=== PATIENT | female | born 1955 | race American Indian/Alaskan Native ===

== ENCOUNTER 2018-06-21 05:21 | Inpatient (IN) | payer MEDICAID, OTHER ==
--- NOTE | 2018-06-21 05:31 | EDM.PDOC ---
ED HPI GENERAL MEDICAL PROBLEM - General Stated Complaint: AMBULANCE-UNKNOWN Time Seen by Provider: 06/21/18 05:31 Source of Information: Reports: Patient, EMS, EMS Notes Reviewed, RN, RN Notes Reviewed History Limitations: Reports: Intoxication - History of Present Illness INITIAL COMMENTS - FREE TEXT/NARRATIVE: Pt to ER per [facility] with c/o difficulty breathing. Patient states she woke up with the shortness of breath. Patient states she was drinking alcohol last night. States hx of diabetes, asthma. States she does not smoke cigarettes but smoke marijuana on a daily basis. Denies fever, N/V/D, chest pain. Admits to chills and non-productive cough. Onset: Today, Sudden - Related Data Allergies Allergy/AdvReac Type Severity Reaction Status Date / Time No Known Allergies Allergy Verified 06/21/18 05:37 ED ROS GENERAL - Review of Systems Review Of Systems: ROS reveals no pertinent complaints other than HPI. ED EXAM, GENERAL - Physical Exam Exam: See Below Exam Limited By: Intoxication General Appearance: Lethargic, Mild Distress Eye Exam: Bilateral Eye: Normal Inspection Ears: Normal External Exam, Hearing Grossly Normal Nose: Normal Inspection Throat/Mouth: Normal Inspection, Normal Lips, Normal Teeth, Normal Gums, Normal Oropharynx, Normal Voice, No Airway Compromise Head: Atraumatic, Normocephalic Neck: Normal Inspection, Supple, Non-Tender, Full Range of Motion Respiratory/Chest: Decreased Breath Sounds, Crackles ( bases bilaterally) Cardiovascular: Normal Peripheral Pulses, Regular Rate, Rhythm, No Edema, No Gallop, No JVD, No Murmur, No Rub Peripheral Pulses: 2+: Radial (L), Radial (R) GI/Abdominal: Normal Bowel Sounds, Soft, Non-Tender (Female) Exam: Deferred Rectal (Female) Exam: Deferred Back Exam: Normal Inspection, Full Range of Motion, NT Extremities: Normal Inspection, Normal Range of Motion, Non-Tender, Normal Capillary Refill, No Pedal Edema Neurological: Inattentive, Slow to Respond Psychiatric: Depressed Mood, Flat Affect, Tearful Skin Exam: Warm, Dry, Intact, Normal Color, No Rash Lymphatic: No Adenopathy Course - Vital Signs Last Recorded V/S: Last Vital Signs Temp 99.2 F 06/21/18 05:22 Pulse 126 H 06/21/18 05:22 Resp 26 H 06/21/18 05:22 BP 145/65 H 06/21/18 05:22 Pulse Ox 98 06/21/18 05:22 - Orders/Labs/Meds Orders: Active Orders 24 hr Category Date Time Status EKG Documentation Completion [RC] STAT Care 06/21/18 05:31 Active Peripheral IV Care [RC] . DIRECTED Care 06/21/18 06:21 Active CULTURE BLOOD [BC] Stat Lab 06/21/18 06:21 Ordered CULTURE BLOOD [BC] Stat Lab 06/21/18 06:21 Ordered Piperacillin/Tazobactam [Zosyn] 3.375 gm Med 06/21/18 06:17 Active Sodium Chloride 0.9% [Normal Saline] 100 ml IV ONETIME Potassium Chloride [KCl 10 MEQ in Water 100 ML] 10 meq Med 06/21/18 06:21 Active Premix Bag 1 bag IV ONETIME Sodium Chloride 0.9% [Normal Saline] 1,000 ml Med 06/21/18 06:11 Active IV .BOLUS Sodium Chloride 0.9% [Saline Flush] Med 06/21/18 06:20 Active 10 ml FLUSH ASDIRECTED PRN Blood Culture x2 Reflex Set [OM.PC] Stat Oth 06/21/18 06:20 Ordered Peripheral IV Insertion Adult [OM.PC] Stat Oth 06/21/18 06:20 Ordered Medication Orders Sodium Chloride (Normal Saline) 1,000 mls @ 999 mls/hr IV .BOLUS ONE Stop: 06/21/18 07:11 Last Admin: 06/21/18 06:14 Dose: 999 mls/hr Piperacillin Sod/Tazobactam (Sod 3.375 gm/ Sodium Chloride) 100 mls @ 200 mls/ hr IV ONETIME ONE Stop: 06/21/18 06:46 Potassium Chloride 10 meq/ (Premix) 100 mls @ 100 mls/hr IV ONETIME ONE Stop: 06/21/18 07:20 Sodium Chloride (Saline Flush) 10 ml FLUSH ASDIRECTED PRN PRN Reason: Keep Vein Open Labs: Laboratory Tests 06/21/18 06/21/18 06/21/18 Range/Units 05:28 05:41 05:41 WBC 17.8 H (5.0-10.0) 10^3/uL RBC 4.41 (4.2-5.4) 10^6/uL Hgb 12.4 (12.0-16.0) g/dL Hct 38.3 (37.0-47.0) % MCV 86.8 (80-100) fL MCH 28.1 (27.0-34.0) pg MCHC 32.4 L (33.0-35.0) g/dL Plt Count 301 (150-450) 10^3/uL Neut % (Auto) 62.2 (42.2-75.2) % Lymph % (Auto) 33.9 (20.5-50.1) % [place] % (Auto) 3.6 (2-8) % Eos % (Auto) 0.2 L (1.0-3.0) % Baso % (Auto) 0.1 (0.0-1.0) % Sodium 138 (135-145) mmol/L Potassium 3.0 L (3.6-5.0) mmol/L Chloride 103 (101-111) mmol/L Carbon Dioxide 15.0 L (21.0-31.0) mmol/L Anion Gap 23.0 BUN 7 (7-18) mg/dL Creatinine 0.7 (0.6-1.3) mg/dL Est Cr Clr Drug Dosing 64.21 mL/min Estimated GFR (MDRD) > 60 BUN/Creatinine Ratio 10.00 Glucose 200 H (74-105) mg/dL POC Glucose 175 H (70-105) mg/dl Lactic Acid (0.5-2.2) mmol/L Calcium 8.5 (8.4-10.2) mg/dl Magnesium 1.6 L (1.8-2.5) mg/dL Total Bilirubin 0.4 (0.2-1.0) mg/dL AST 31 (10-42) IU/L ALT 20 (10-60) IU/L Alkaline Phosphatase 71 (42-121) IU/L Troponin I < 0.02 (0.00-0.02) ng/ml Total Protein 8.0 (6.7-8.2) g/dl Albumin 4.2 (3.2-5.5) g/dl Globulin 3.8 Albumin/Globulin Ratio 1.11 Urine Color (YELLOW) Urine Appearance (CLEAR) Urine pH (5.0-9.0) Ur Specific [place] (1.005-1.030) Urine Protein (NEGATIVE) Urine Glucose (UA) (NEGATIVE) Urine Ketones (NEGATIVE) Urine Occult Blood (NEGATIVE) Urine Nitrite (NEGATIVE) Urine Bilirubin (NEGATIVE) Urine Urobilinogen (0.2-1.0) mg/dL Ur Leukocyte Esterase (NEGATIVE) Urine Opiates Screen (NEGATIVE) Ur Oxycodone Screen (NEGATIVE) Urine Methadone Screen (NEGATIVE) Ur Barbiturates Screen (NEGATIVE) U Tricyclic Antidepress (NEGATIVE) Ur Phencyclidine Scrn (NEGATIVE) Ur Amphetamine Screen (NEGATIVE) U Methamphetamines Scrn (NEGATIVE) Urine MDMA Screen (NEGATIVE) U Benzodiazepines Scrn (NEGATIVE) Urine Cocaine Screen (NEGATIVE) U Marijuana (THC) Screen (NEGATIVE) Ethyl Alcohol 234 mg/dL 06/21/18 06/21/18 06/21/18 Range/Units 05:41 05:55 05:55 WBC (5.0-10.0) 10^3/uL RBC (4.2-5.4) 10^6/uL Hgb (12.0-16.0) g/dL Hct (37.0-47.0) % MCV (80-100) fL MCH (27.0-34.0) pg MCHC (33.0-35.0) g/dL Plt Count (150-450) 10^3/uL Neut % (Auto) (42.2-75.2) % Lymph % (Auto) (20.5-50.1) % [place] % (Auto) (2-8) % Eos % (Auto) (1.0-3.0) % Baso % (Auto) (0.0-1.0) % Sodium (135-145) mmol/L Potassium (3.6-5.0) mmol/L Chloride (101-111) mmol/L Carbon Dioxide (21.0-31.0) mmol/L Anion Gap BUN (7-18) mg/dL Creatinine (0.6-1.3) mg/dL Est Cr Clr Drug Dosing mL/min Estimated GFR (MDRD) BUN/Creatinine Ratio Glucose (74-105) mg/dL POC Glucose (70-105) mg/dl Lactic Acid 5.7 H (0.5-2.2) mmol/L Calcium (8.4-10.2) mg/dl Magnesium (1.8-2.5) mg/dL Total Bilirubin (0.2-1.0) mg/dL AST (10-42) IU/L ALT (10-60) IU/L Alkaline Phosphatase (42-121) IU/L Troponin I (0.00-0.02) ng/ml Total Protein (6.7-8.2) g/dl Albumin (3.2-5.5) g/dl Globulin Albumin/Globulin Ratio Urine Color Yellow (YELLOW) Urine Appearance Clear (CLEAR) Urine pH 5.0 (5.0-9.0) Ur Specific [place] <= 1.005 (1.005-1.030) Urine Protein Negative (NEGATIVE) Urine Glucose (UA) Negative (NEGATIVE) Urine Ketones Negative (NEGATIVE) Urine Occult Blood Negative (NEGATIVE) Urine Nitrite Negative (NEGATIVE) Urine Bilirubin Negative (NEGATIVE) Urine Urobilinogen 0.2 (0.2-1.0) mg/dL Ur Leukocyte Esterase Negative (NEGATIVE) Urine Opiates Screen Negative (NEGATIVE) Ur Oxycodone Screen Negative (NEGATIVE) Urine Methadone Screen Negative (NEGATIVE) Ur Barbiturates Screen Negative (NEGATIVE) U Tricyclic Antidepress Negative (NEGATIVE) Ur Phencyclidine Scrn Negative (NEGATIVE) Ur Amphetamine Screen Negative (NEGATIVE) U Methamphetamines Scrn Negative (NEGATIVE) Urine MDMA Screen Negative (NEGATIVE) U Benzodiazepines Scrn Negative (NEGATIVE) Urine Cocaine Screen Negative (NEGATIVE) U Marijuana (THC) Screen Positive H (NEGATIVE) Ethyl Alcohol mg/dL Meds: Medications Generic Name Dose Route Start Last Admin Trade Name Freq PRN Reason Stop Dose Admin Sodium Chloride 1,000 mls @ 999 mls/hr 06/21/18 06:11 06/21/18 06:14 Normal Saline IV 06/21/18 07:11 999 mls/hr .BOLUS ONE Administration Piperacillin Sod/Tazobactam 100 mls @ 200 mls/hr 06/21/18 06:17 Sod 3.375 gm/ Sodium Chloride IV 06/21/18 06:46 ONETIME ONE Potassium Chloride 10 meq/ 100 mls @ 100 mls/hr 06/21/18 06:21 Premix IV 06/21/18 07:20 ONETIME ONE Sodium Chloride 10 ml 06/21/18 06:20 Saline Flush FLUSH ASDIRECTED PRN Keep Vein Open - Radiology Interpretation Free Text/Narrative:: Chest xray: FINDINGS: Lungs: There is some haziness seen in the left lower hemithorax possibly representing atelectasis. An infiltrate cannot be entirely excluded. Pleural space: Unremarkable. No pleural effusion. No pneumothorax. Heart/Mediastinum: Unremarkable. No cardiomegaly. Bones/joints: Unremarkable. IMPRESSION: Haziness present in the left lower hemithorax may represent atelectasis although infiltrate cannot be excluded. Thank you for allowing us to participate in the care of your patient. Dictated and Authenticated by: Gino Ortiz MD See rad report - Re-Assessments/Exams Free Text/Narrative Re-Assessment/Exam: 06/21/18 06:36 Discussed patient case with Dr. Schultz who agreed to accept the patient inpatient. Departure - Departure Time of Disposition: 06:33 Disposition: Admitted As Inpatient 65 Condition: Fair Clinical Impression: Intoxication, Hypokalemia, Hypomagnesemia Pneumonia Qualifiers: Pneumonia type: due to unspecified organism Laterality: left Lung location: lower lobe of lung Qualified Code(s): J18.1 - Lobar pneumonia, unspecified organism Asthma Qualifiers: Asthma severity: unspecified severity Asthma persistence: intermittent Asthma complication type: with acute exacerbation Qualified Code(s): J45.21 - Mild intermittent asthma with (acute) exacerbation Diabetes Qualifiers: Diabetes mellitus type: type 2 Diabetes mellitus vermin exterminator insulin use: without fdc use Diabetes mellitus complication status: without complication Qualified Code(s): E11.9 - Type 2 diabetes mellitus without complications - Discharge Information *PRESCRIPTION DRUG MONITORING PROGRAM REVIEWED*: No *COPY OF PRESCRIPTION DRUG MONITORING REPORT IN PATIENT ASHER: No Forms: ED Department Discharge - My Orders Last 24 Hours: My Active Orders 06/21/18 05:31 EKG Documentation Completion [RC] STAT 06/21/18 06:11 Sodium Chloride 0.9% [Normal Saline] 1,000 ml IV .BOLUS 06/21/18 06:17 Piperacillin/Tazobactam [Zosyn] 3.375 gm Sodium Chloride 0.9% [Normal Saline] 100 ml IV ONETIME 06/21/18 06:20 Sodium Chloride 0.9% [Saline Flush] 10 ml FLUSH ASDIRECTED PRN Blood Culture x2 Reflex Set [OM.PC] Stat Peripheral IV Insertion Adult [OM.PC] Stat 06/21/18 06:21 Peripheral IV Care [RC] . DIRECTED CULTURE BLOOD [BC] Stat CULTURE BLOOD [BC] Stat Potassium Chloride [KCl 10 MEQ in Water 100 ML] 10 meq Premix Bag 1 bag IV ONETIME - Assessment/Plan Last 24 Hours: My Active Orders 06/21/18 05:31 EKG Documentation Completion [RC] STAT 06/21/18 06:11 Sodium Chloride 0.9% [Normal Saline] 1,000 ml IV .BOLUS 06/21/18 06:17 Piperacillin/Tazobactam [Zosyn] 3.375 gm Sodium Chloride 0.9% [Normal Saline] 100 ml IV ONETIME 06/21/18 06:20 Sodium Chloride 0.9% [Saline Flush] 10 ml FLUSH ASDIRECTED PRN Blood Culture x2 Reflex Set [OM.PC] Stat Peripheral IV Insertion Adult [OM.PC] Stat 06/21/18 06:21 Peripheral IV Care [RC] . DIRECTED CULTURE BLOOD [BC] Stat CULTURE BLOOD [BC] Stat Potassium Chloride [KCl 10 MEQ in Water 100 ML] 10 meq Premix Bag 1 bag IV ONETIME
[2018-06-21] MEDS ORDERED: Sodium Chloride 0.9% 1,000 ML IV ONE ×2 (06:11→10:30)
[2018-06-21 06:12] LABS: CHLORIDE,CL 103 mmol/L (101-111); SODIUM,NA 138 mmol/L (135-145)
[2018-06-21] MEDS ORDERED: Piperacillin/Tazobactam 3.375 GM in Sodium Chloride 0.9% 100 ML IV ONE (06:17)
[2018-06-21] MEDS ORDERED: Potassium Chloride 10 MEQ in Premix Bag 1 BAG IV ONE (06:21)
[2018-06-21] MEDS ORDERED: Magnesium Sulfate/Water 2 GM in Premix Bag 1 BAG IV ONE (06:36)
[2018-06-21] MEDS: Sodium Chloride 0.9% 10 ML Syringe FLUSH PRN (07:04)
[2018-06-21] MEDS ORDERED: Bisacodyl 5 MG Tab PO PRN (08:46)
[2018-06-21] MEDS ORDERED: Acetaminophen 325 MG Tab PO PRN (08:46)
[2018-06-21] MEDS ORDERED: Albuterol/Ipratropium 3.0-0.5 MG/3 ML Neb Soln NEB PRN (08:46)
[2018-06-21] MEDS ORDERED: Magnesium Hydroxide 400 MG/5 ML Susp 30 ML Cup PO PRN ×2 (08:46→13:45)
[2018-06-21] MEDS ORDERED: Ondansetron 4 MG/2 ML SDV IVPUSH PRN ×2 (08:46→13:45)
[2018-06-21] MEDS ORDERED: Lidocaine 5% 700 MG Patch TOP PRN (08:53)
[2018-06-21] MEDS ORDERED: Sodium Chloride 0.9% 1,000 ML IV SCH (09:00)
--- NOTE | 2018-06-21 09:01 | PCM.HP ---
H&P History of Present Illness - General Date of Service: 06/21/18 Admit Problem/Dx: Admission Diagnosis/Problem Admission Diagnosis/Problem Sepsis Source of Information: Patient History Limitations: Reports: No Limitations - History of Present Illness Initial Comments - Free Text/Narative: Michael is a 53 year old female with past medical history significant for diabetes , asthma and marijuana use. Patient was brought to the ER via EMS with shortness of breath. Patient said she woke up with shortness of breath this morning. This was associated with wheezing. She thinks this is flare of her asthma. She used her rescue medications with no relief. EMS was activated. Upon arrival she received Solu-Medrol, 2 rounds of nebulization. The patient denies cough, chest pain, palpitation. She has no fever or chills. Patient was drinking alcohol last night. But she denies daily use of alcohol. She says she does not drink. She denied vomiting or loss of consciousness. She denies abdominal pain, nausea, vomiting, diarrhea, constipation. In the ER her vitals were essentially unremarkable accept for mild tachycardia. Significant labs include WBC 17.8, lactic acid 5.7, anion gap 23, CO2 15, potassium replacement 0 , magnesium 1.6, blood alcohol level 234. Chest x-ray showed haziness present in the left lower hemithorax concerning for atelectasis versus infiltrate. She was given Zosyn and IVF in the ER. She has been admitted for further management. Onset of Symptoms: Reports: Sudden Duration of Symptoms: Reports: Hour(s): Location: Reports: Chest Quality: Reports: Ache Improves with: Reports: None Worsens with: Reports: None Associated Symptoms: Reports: No Other Symptoms, Shortness of Breath - Related Data Allergies/Adverse Reactions: Allergies Allergy/AdvReac Type Severity Reaction Status Date / Time codeine AdvReac Vomiting Verified 06/21/18 07:32 Home Medications: Home Meds Acetaminophen 1,000 mg PO Q6H PRN 06/21/18 [History] Albuterol Sulfate [Proair Hfa] 1 puff INH Q6H PRN 06/21/18 [History] Aspirin [Halfprin] 81 mg PO DAILY 06/21/18 [History] Calcium Citrate/Vitamin D3 [Calcium Citrate - Vit D Tablet] 1 tab PO DAILY 06/21 [History] Capsaicin [Zostrix 0.025% Crm] 1 applic TOP BID 06/21/18 [History] Celecoxib 200 mg PO DAILY 06/21/18 [History] Cholecalciferol (Vitamin D3) [Vitamin D3] 1,000 units PO DAILY 06/21/18 [History ] Diclofenac Sodium [Voltaren 1%] 1 applic TP QID 06/21/18 [History] Fluticasone Propionate [Flovent] 1 spray INH DAILY 06/21/18 [History] Gabapentin [Neurontin] 200 mg PO BID 06/21/18 [History] Insulin Detemir [Levemir] 15 units SUBCUT BID 06/21/18 [History] Lidocaine 5% [Lidoderm 5%] 2 patch TOP Q12HR PRN 06/21/18 [History] Lisinopril 2.5 mg PO DAILY 06/21/18 [History] Loratadine 10 mg PO DAILY 06/21/18 [History] Multivitamin with Minerals [Multivitamins with Minerals] 1 tab PO DAILY [History] Saxagliptin HCl [Onglyza] 5 mg PO DAILY 06/21/18 [History] Simvastatin 20 mg PO BEDTIME 06/21/18 [History] Vitamin B Comp W-C/FA/Zinc [Juana B Strong with C & Zinc Tb] 1 tab PO DAILY 06/21 [History] metFORMIN HCl [Metformin HCl] 1,000 mg PO BID 06/21/18 [History] Past Medical History HEENT History: Reports: Impaired Vision Cardiovascular History: Reports: Hypertension Respiratory History: Reports: Asthma, Pneumonia, Recurrent Musculoskeletal History: Reports: Arthritis Psychiatric History: Reports: Addiction Endocrine/Metabolic History: Reports: Diabetes, Type II - Infectious Disease History Infectious Disease History: Reports: Chicken Pox - Past Surgical History GI Surgical History: Reports: Appendectomy, Cholecystectomy Social & Family History - Family History Family Medical History: Noncontributory - Tobacco Use Smoking Status *Q: Former Smoker Used Tobacco, but Quit: Yes Month/Year Tobacco Last Used: when she was 27 Second Hand Smoke Exposure: No - Caffeine Use Caffeine Use: Reports: Coffee Other Caffeine Use: Coffee daily - Alcohol Use Days Per Week of Alcohol Use: 2 Number of Drinks Per Day: 10 Total Drinks Per Week: 20 Date of Last Drink: 06/20/18 - Recreational Drug Use Recreational Drug Use: Yes Drug Use in Last 12 Months: Yes Recreational Drug Type: Reports: Marijuana/Hashish Recreational Drug Use Frequency: Daily H&P Review of Systems - Review of Systems: Review Of Systems: See Below General: Reports: Weakness HEENT: Reports: No Symptoms Pulmonary: Reports: Shortness of Breath, Wheezing Cardiovascular: Reports: No Symptoms Gastrointestinal: Reports: No Symptoms Genitourinary: Reports: No Symptoms Musculoskeletal: Reports: No Symptoms Skin: Reports: No Symptoms Psychiatric: Reports: No Symptoms Neurological: Reports: No Symptoms Hematologic/Lymphatic: Reports: No Symptoms Immunologic: Reports: No Symptoms Exam - Exam Exam: See Below - Vital Signs Vital Signs: Last Vital Signs Temp 98.2 F 06/21/18 07:32 Pulse 108 H 06/21/18 07:32 Resp 20 06/21/18 07:32 BP 116/66 06/21/18 07:32 Pulse Ox 98 06/21/18 07:32 Weight: 173 lb 3.2 oz - Exam Quality Assessment: DVT Prophylaxis General: Alert, Oriented, 4 HEENT: PERRLA, Hearing Intact, Mucosa Moist & [place], Nares Patent, Normal Nasal Septum, Posterior Pharynx Clear, Conjunctiva Clear, EOMI, EACs Clear, TMs Clear Neck: Supple, Trachea Midline, 2 Lungs: Clear to Auscultation, Normal Respiratory Effort Cardiovascular: Regular Rate, Regular Rhythm GI/Abdominal Exam: Normal Bowel Sounds, Soft, Non-Tender, No Organomegaly, No Distention, No Abnormal Bruit, No Mass, Pelvis Stable (Female) Exam: Normal External Exam, Normal Speculum Exam, Normal Bimanual Exam Rectal (Female) Exam: Normal Rectal Tone, Deferred Back Exam: Normal Inspection, Full Range of Motion, NT Extremities: Normal Inspection, Normal Range of Motion, Non-Tender, No Pedal Edema, Normal Capillary Refill Skin: Warm, Dry, Intact Neurological: Cranial Nerves Intact, Reflexes Equal Bilateral Neuro Extensive - Mental Status: Alert, Oriented x3, Normal Mood/Affect, Normal Cognition Neuro Extensive - Motor, Sensory, Reflexes: CN II-XII Intact, Normal Gait, Normal Reflexes - Patient Data Lab Results Last 24 hrs: Laboratory Results - last 24 hr 06/21/18 06/21/18 06/21/18 Range/Units 05:28 05:41 05:41 WBC 17.8 H (5.0-10.0) 10^3/uL RBC 4.41 (4.2-5.4) 10^6/uL Hgb 12.4 (12.0-16.0) g/dL Hct 38.3 (37.0-47.0) % MCV 86.8 (80-100) fL MCH 28.1 (27.0-34.0) pg MCHC 32.4 L (33.0-35.0) g/dL Plt Count 301 (150-450) 10^3/uL Neut % (Auto) 62.2 (42.2-75.2) % Lymph % (Auto) 33.9 (20.5-50.1) % [place] % (Auto) 3.6 (2-8) % Eos % (Auto) 0.2 L (1.0-3.0) % Baso % (Auto) 0.1 (0.0-1.0) % Sodium 138 (135-145) mmol/L Potassium 3.0 L (3.6-5.0) mmol/L Chloride 103 (101-111) mmol/L Carbon Dioxide 15.0 L (21.0-31.0) mmol/L Anion Gap 23.0 BUN 7 (7-18) mg/dL Creatinine 0.7 (0.6-1.3) mg/dL Est Cr Clr Drug Dosing 64.21 mL/min Estimated GFR (MDRD) > 60 BUN/Creatinine Ratio 10.00 Glucose 200 H (74-105) mg/dL POC Glucose 175 H (70-105) mg/dl Lactic Acid (0.5-2.2) mmol/L Calcium 8.5 (8.4-10.2) mg/dl Magnesium 1.6 L (1.8-2.5) mg/dL Total Bilirubin 0.4 (0.2-1.0) mg/dL AST 31 (10-42) IU/L ALT 20 (10-60) IU/L Alkaline Phosphatase 71 (42-121) IU/L Troponin I < 0.02 (0.00-0.02) ng/ml Total Protein 8.0 (6.7-8.2) g/dl Albumin 4.2 (3.2-5.5) g/dl Globulin 3.8 Albumin/Globulin Ratio 1.11 Urine Color (YELLOW) Urine Appearance (CLEAR) Urine pH (5.0-9.0) Ur Specific [place] (1.005-1.030) Urine Protein (NEGATIVE) Urine Glucose (UA) (NEGATIVE) Urine Ketones (NEGATIVE) Urine Occult Blood (NEGATIVE) Urine Nitrite (NEGATIVE) Urine Bilirubin (NEGATIVE) Urine Urobilinogen (0.2-1.0) mg/dL Ur Leukocyte Esterase (NEGATIVE) Urine Opiates Screen (NEGATIVE) Ur Oxycodone Screen (NEGATIVE) Urine Methadone Screen (NEGATIVE) Ur Barbiturates Screen (NEGATIVE) U Tricyclic Antidepress (NEGATIVE) Ur Phencyclidine Scrn (NEGATIVE) Ur Amphetamine Screen (NEGATIVE) U Methamphetamines Scrn (NEGATIVE) Urine MDMA Screen (NEGATIVE) U Benzodiazepines Scrn (NEGATIVE) Urine Cocaine Screen (NEGATIVE) U Marijuana (THC) Screen (NEGATIVE) Ethyl Alcohol 234 mg/dL 06/21/18 06/21/18 06/21/18 Range/Units 05:41 05:55 05:55 WBC (5.0-10.0) 10^3/uL RBC (4.2-5.4) 10^6/uL Hgb (12.0-16.0) g/dL Hct (37.0-47.0) % MCV (80-100) fL MCH (27.0-34.0) pg MCHC (33.0-35.0) g/dL Plt Count (150-450) 10^3/uL Neut % (Auto) (42.2-75.2) % Lymph % (Auto) (20.5-50.1) % [place] % (Auto) (2-8) % Eos % (Auto) (1.0-3.0) % Baso % (Auto) (0.0-1.0) % Sodium (135-145) mmol/L Potassium (3.6-5.0) mmol/L Chloride (101-111) mmol/L Carbon Dioxide (21.0-31.0) mmol/L Anion Gap BUN (7-18) mg/dL Creatinine (0.6-1.3) mg/dL Est Cr Clr Drug Dosing mL/min Estimated GFR (MDRD) BUN/Creatinine Ratio Glucose (74-105) mg/dL POC Glucose (70-105) mg/dl Lactic Acid 5.7 H (0.5-2.2) mmol/L Calcium (8.4-10.2) mg/dl Magnesium (1.8-2.5) mg/dL Total Bilirubin (0.2-1.0) mg/dL AST (10-42) IU/L ALT (10-60) IU/L Alkaline Phosphatase (42-121) IU/L Troponin I (0.00-0.02) ng/ml Total Protein (6.7-8.2) g/dl Albumin (3.2-5.5) g/dl Globulin Albumin/Globulin Ratio Urine Color Yellow (YELLOW) Urine Appearance Clear (CLEAR) Urine pH 5.0 (5.0-9.0) Ur Specific [place] <= 1.005 (1.005-1.030) Urine Protein Negative (NEGATIVE) Urine Glucose (UA) Negative (NEGATIVE) Urine Ketones Negative (NEGATIVE) Urine Occult Blood Negative (NEGATIVE) Urine Nitrite Negative (NEGATIVE) Urine Bilirubin Negative (NEGATIVE) Urine Urobilinogen 0.2 (0.2-1.0) mg/dL Ur Leukocyte Esterase Negative (NEGATIVE) Urine Opiates Screen Negative (NEGATIVE) Ur Oxycodone Screen Negative (NEGATIVE) Urine Methadone Screen Negative (NEGATIVE) Ur Barbiturates Screen Negative (NEGATIVE) U Tricyclic Antidepress Negative (NEGATIVE) Ur Phencyclidine Scrn Negative (NEGATIVE) Ur Amphetamine Screen Negative (NEGATIVE) U Methamphetamines Scrn Negative (NEGATIVE) Urine MDMA Screen Negative (NEGATIVE) U Benzodiazepines Scrn Negative (NEGATIVE) Urine Cocaine Screen Negative (NEGATIVE) U Marijuana (THC) Screen Positive H (NEGATIVE) Ethyl Alcohol mg/dL 06/21/18 Range/Units 07:47 WBC (5.0-10.0) 10^3/uL RBC (4.2-5.4) 10^6/uL Hgb (12.0-16.0) g/dL Hct (37.0-47.0) % MCV (80-100) fL MCH (27.0-34.0) pg MCHC (33.0-35.0) g/dL Plt Count (150-450) 10^3/uL Neut % (Auto) (42.2-75.2) % Lymph % (Auto) (20.5-50.1) % [place] % (Auto) (2-8) % Eos % (Auto) (1.0-3.0) % Baso % (Auto) (0.0-1.0) % Sodium (135-145) mmol/L Potassium (3.6-5.0) mmol/L Chloride (101-111) mmol/L Carbon Dioxide (21.0-31.0) mmol/L Anion Gap BUN (7-18) mg/dL Creatinine (0.6-1.3) mg/dL Est Cr Clr Drug Dosing mL/min Estimated GFR (MDRD) BUN/Creatinine Ratio Glucose (74-105) mg/dL POC Glucose 196 H (70-105) mg/dl Lactic Acid (0.5-2.2) mmol/L Calcium (8.4-10.2) mg/dl Magnesium (1.8-2.5) mg/dL Total Bilirubin (0.2-1.0) mg/dL AST (10-42) IU/L ALT (10-60) IU/L Alkaline Phosphatase (42-121) IU/L Troponin I (0.00-0.02) ng/ml Total Protein (6.7-8.2) g/dl Albumin (3.2-5.5) g/dl Globulin Albumin/Globulin Ratio Urine Color (YELLOW) Urine Appearance (CLEAR) Urine pH (5.0-9.0) Ur Specific [place] (1.005-1.030) Urine Protein (NEGATIVE) Urine Glucose (UA) (NEGATIVE) Urine Ketones (NEGATIVE) Urine Occult Blood (NEGATIVE) Urine Nitrite (NEGATIVE) Urine Bilirubin (NEGATIVE) Urine Urobilinogen (0.2-1.0) mg/dL Ur Leukocyte Esterase (NEGATIVE) Urine Opiates Screen (NEGATIVE) Ur Oxycodone Screen (NEGATIVE) Urine Methadone Screen (NEGATIVE) Ur Barbiturates Screen (NEGATIVE) U Tricyclic Antidepress (NEGATIVE) Ur Phencyclidine Scrn (NEGATIVE) Ur Amphetamine Screen (NEGATIVE) U Methamphetamines Scrn (NEGATIVE) Urine MDMA Screen (NEGATIVE) U Benzodiazepines Scrn (NEGATIVE) Urine Cocaine Screen (NEGATIVE) U Marijuana (THC) Screen (NEGATIVE) Ethyl Alcohol mg/dL Result Diagrams: 06/21/18 09:23 06/21/18 05:41 - Problem List (1) Sepsis SNOMED Code(s): 14337106 ICD Code: A41.9 - SEPSIS, UNSPECIFIED ORGANISM Status: Acute Current Visit: Yes (2) Metabolic acidosis with increased anion gap and accumulation of organic acids SNOMED Code(s): 27159947 ICD Code: E87.2 - ACIDOSIS Status: Acute Current Visit: Yes (3) Asthma SNOMED Code(s): 404419491 ICD Code: J45.909 - UNSPECIFIED ASTHMA, UNCOMPLICATED Status: Acute Current Visit: No Qualifiers: Asthma severity: unspecified severity Asthma persistence: intermittent Asthma complication type: with acute exacerbation Qualified Code(s): J45.21 - Mild intermittent asthma with (acute) exacerbation (4) Diabetes SNOMED Code(s): 63360269 ICD Code: E11.9 - TYPE 2 DIABETES MELLITUS WITHOUT COMPLICATIONS Status: Acute Current Visit: No Qualifiers: Diabetes mellitus type: type 2 Diabetes mellitus senior living insulin use: without senior living use Diabetes mellitus complication status: without complication Qualified Code(s): E11.9 - Type 2 diabetes mellitus without complications (5) Hypokalemia SNOMED Code(s): 14578983 ICD Code: E87.6 - HYPOKALEMIA Status: Acute Current Visit: No (6) Hypomagnesemia SNOMED Code(s): 159093301 ICD Code: E83.42 - HYPOMAGNESEMIA Status: Acute Current Visit: No (7) Intoxication SNOMED Code(s): 94480894 ICD Code: TZH4130 - Status: Acute Current Visit: No (8) Pneumonia SNOMED Code(s): 422166562 ICD Code: J18.9 - PNEUMONIA, UNSPECIFIED ORGANISM Status: Acute Current Visit: No Qualifiers: Pneumonia type: due to unspecified organism Laterality: left Lung location: lower lobe of lung Qualified Code(s): J18.1 - Lobar pneumonia, unspecified organism Problem List Initiated/Reviewed/Updated: Yes Orders Last 24hrs: Active Orders 24 hr Category Date Time Status Patient Status [ADT] Routine ADT 06/21/18 08:46 Ordered Ambulate [RC] ASDIRECTED Care 06/21/18 08:46 Ordered Blood Glucose Check, Bedside [RC] QIDACANDBED Care 06/21/18 08:46 Ordered Cardiac Monitoring [RC] CONTINUOUS Care 06/21/18 08:48 Ordered Intake and Output [RC] QSHIFT Care 06/21/18 08:47 Ordered Notify Provider Vital Signs [RC] ASDIRECTED Care 06/21/18 08:48 Ordered Oxygen Therapy [RC] PRN Care 06/21/18 08:46 Ordered Peripheral IV Care [RC] 09,21 Care 06/21/18 06:21 Active Pulse Oximetry [RC] PRN Care 06/21/18 08:47 Ordered RT Aerosol Therapy [RC] ASDIRECTED Care 06/21/18 08:53 Ordered VTE/DVT Education [RC] PER UNIT ROUTINE Care 06/21/18 08:46 Ordered Vital Signs [RC] Q4H Care 06/21/18 08:46 Ordered Respiratory Care Assess and Treatment [CONS] Routine Cons 06/21/18 08:46 Ordered CBC WITH AUTO DIFF [HEME] Routine Lab 06/21/18 08:46 Ordered CULTURE BLOOD [BC] Stat Lab 06/21/18 06:37 Received CULTURE BLOOD [BC] Stat Lab 06/21/18 06:41 Received LACTIC ACID [CHEM] Q4H Lab 06/21/18 09:00 Ordered LACTIC ACID [CHEM] Q4H Lab 06/21/18 13:00 Ordered LACTIC ACID [CHEM] Q4H Lab 06/21/18 17:00 Ordered LACTIC ACID [CHEM] Q4H Lab 06/21/18 21:00 Ordered MAGNESIUM [CHEM] Routine Lab 06/21/18 08:46 Ordered PHOSPHORUS [CHEM] Routine Lab 06/21/18 08:46 Ordered Acetaminophen [Tylenol] Med 06/21/18 08:46 Ordered 650 mg PO Q6H PRN Albuterol/Ipratropium [DuoNeb 3.0-0.5 MG/3 ML] Med 06/21/18 08:46 Ordered 3 ml NEB Q4H PRN Aspirin [Halfprin] Med 06/21/18 09:00 Ordered 81 mg PO DAILY Bisacodyl [Dulcolax] Med 06/21/18 08:46 Ordered 5 mg PO DAILY PRN Calcium Citrate/Vitamin D3 [Calcium Citrate - Vit D Med 06/21/18 09:00 Ordered Tablet] 1 tab PO DAILY Capsaicin [Zostrix 0.025% Crm] Med 06/21/18 09:00 Ordered 1 applic TOP BID Celecoxib [Celecoxib] Med 06/21/18 09:00 Ordered 200 mg PO DAILY Cholecalciferol (Vitamin D3) [Vitamin D3] Med 06/21/18 09:00 Ordered 1,000 units PO DAILY Diclofenac Sodium [Voltaren 1% Gel] Med 06/21/18 09:00 Ordered 1 applic TP QID Fluticasone Propionate [Flovent] Med 06/21/18 09:00 Ordered 1 spray INH DAILY Gabapentin [Neurontin] Med 06/21/18 09:00 Ordered 200 mg PO BID Heparin Sodium Med 06/21/18 09:00 Ordered 5,000 units SUBCUT Q12H Insulin Detemir [Levemir] Med 06/21/18 09:00 Ordered 15 units SUBCUT BID Lidocaine 5% [Lidoderm 5%] Med 06/21/18 08:53 Ordered 2 patch TOP Q12HR PRN Lisinopril [Prinivil] Med 06/21/18 09:00 Ordered 2.5 mg PO DAILY Magnesium Hydroxide [Milk of Magnesia] Med 06/21/18 08:46 Ordered 30 ml PO Q12H PRN Multivitamin with Minerals [Multivitamins with Minerals Med 06/21/18 09:00 Ordered ] 1 tab PO DAILY Ondansetron [Zofran] Med 06/21/18 08:46 Ordered 4 mg IVPUSH Q8H PRN Saxagliptin HCl [Onglyza] Med 06/21/18 09:00 Ordered 5 mg PO DAILY Simvastatin [Simvastatin] Med 06/21/18 21:00 Ordered 20 mg PO BEDTIME Sodium Chloride 0.9% [Normal Saline] 1,000 ml Med 06/21/18 09:00 Ordered IV .BOLUS Sodium Chloride 0.9% [Saline Flush] Med 06/21/18 06:20 Active 10 ml FLUSH ASDIRECTED PRN Vitamin B Comp W-C/FA/Zinc [Juana B Strong with C & Zinc Med 06/21/18 09:00 Ordered Tb] 1 tab PO DAILY Blood Culture x2 Reflex Set [OM.PC] Stat Oth 06/21/18 06:20 Ordered Peripheral IV Insertion Adult [OM.PC] Stat Oth 06/21/18 06:20 Ordered Resuscitation Status Routine Resus Stat 06/21/18 08:46 Ordered Medication Orders Acetaminophen (Tylenol) 650 mg PO Q6H PRN PRN Reason: Pain (Mild 1-3)/fever Albuterol/Ipratropium (Duoneb 3.0-0.5 Mg/3 Ml) 3 ml NEB Q4H PRN PRN Reason: shortness of breath/wheezing Aspirin (Halfprin) 81 mg PO DAILY [facility] Bisacodyl (Dulcolax) 5 mg PO DAILY PRN PRN Reason: Constipation Capsaicin (Zostrix 0.025% Crm) gm TOP BID [facility] Cholecalciferol (Vitamin D3) 1,000 units PO DAILY [facility] Gabapentin (Neurontin) 200 mg PO BID [facility] Heparin Sodium (Porcine) (Heparin Sodium) 5,000 units SUBCUT Q12H [facility] Sodium Chloride (Normal Saline) 1,000 mls @ 999 mls/hr IV .BOLUS [facility] Lidocaine (Lidoderm 5%) mg TOP Q12HR PRN PRN Reason: Pain Lisinopril (Prinivil) 2.5 mg PO DAILY [facility] Magnesium Hydroxide (Milk Of Magnesia) 30 ml PO Q12H PRN PRN Reason: Constipation Non-Formulary Medication (Calcium Citrate/Vitamin D3 [Calcium Citrate - Vit D Tablet]) 1 tab PO DAILY [facility] Non-Formulary Medication (Celecoxib [Celecoxib]) 200 mg PO DAILY [facility] Non-Formulary Medication (Diclofenac Sodium [Voltaren 1% Gel]) 1 applic TP QID [facility] Non-Formulary Medication (Fluticasone Propionate [Flovent]) 1 spray INH DAILY [facility] Non-Formulary Medication (Insulin Detemir [Levemir]) 15 units SUBCUT BID [facility] Non-Formulary Medication (Multivitamin With Minerals [Multivitamins With Minerals]) 1 tab PO DAILY [facility] Non-Formulary Medication (Saxagliptin Hcl [Onglyza]) 5 mg PO DAILY [facility] Non-Formulary Medication (Simvastatin [Simvastatin]) 20 mg PO BEDTIME [facility] Non-Formulary Medication (Vitamin B Comp W-C/Fa/Zinc [Juana B Strong With C & Zinc Tb]) 1 tab PO DAILY [facility] Ondansetron HCl (Zofran) 4 mg IVPUSH Q8H PRN PRN Reason: Nausea/Vomiting Sodium Chloride (Saline Flush) 10 ml FLUSH ASDIRECTED PRN PRN Reason: Keep Vein Open Last Admin: 06/21/18 07:04 Dose: 10 ml Assessment/Plan Comment:: Assessment. Rodriguez is a 53 year old female with past medical history significant for diabetes , asthma and marijuana use. Patient was brought to the ER via EMS with shortness of breath. Patient said she woke up with shortness of breath this morning. This was associated with wheezing. She thinks this is flare of her asthma. In the ER her vitals were essentially unremarkable accept for mild tachycardia. Significant labs include WBC 17.8, lactic acid 5.7, anion gap 23, CO2 15, potassium replacement 0, magnesium 1.6, blood alcohol level 234. Chest x-ray was concerning for atelectasis versus infiltrate. Plan Acute respiratory failure due to asthma exacerbation Abdomen patient to Gen. medical floors Monitor vitals Monitor on telemetry Supplemental oxygen as needed Duo-nebs every 4 hourly Solu-Medrol 40 mg 3 times a day Respiratory to assess and treat as needed High anion gap metabolic acidosis due to sepsis versus lactic acidosis from nebulizer use Repeat labs including lactate IV fluid Possible sepsis due to possible pneumonia - POA Patient's was febrile, tachycardia, chest x-ray showed left lower hemithorax concerning for infiltrate vs atelectasis with elevated lactic acid This could be due to possible pneumonia most likely aspiration pneumonia Blood cultures, sputum for Gram stain and culture, urine culture Continue IV Zosyn Lactate every 4 hourly 4 Aggressive IV hydration Possible Pneumonia CXR showed left lower hemithorax concerning for infiltrate vs atelectasis Continue IV Zosyn as above Follow cultures Hypomagnesemia IV replacement Hypokalemia Replace IV Alcohol intoxication Patient denies drinking alcohol daily EtoH was 234 on admit Continue IV fluids Monitor electrolytes and correct as needed Monitor for alcohol withdrawal symptoms Aspiration/fall/seizure precautions Marijuana abuse Patient advised to quit using recreational substances Type 2 diabetes Supple optimally controlled Continue home medication as sent for metformin POC glucose 4 times daily Sliding-scale insulin for optimal glycemic control Hypoglycemia protocol Diabetic neuropathy Continue gabapentin Diet Consistent carbohydrate diet Full code
[2018-06-21] MEDS: Sodium Chloride 0.9% 1,000 ML IV SCH ×2 (09:17→20:10)
[2018-06-21 10:04] LABS: ANION GAP 21.6; CHLORIDE,CL 108 mmol/L (101-111); SODIUM,NA 139 mmol/L (135-145)
[2018-06-21] MEDS: Gabapentin 100 MG Cap PO SCH ×2 (10:58→21:11)
[2018-06-21] MEDS: Heparin Sodium 5,000 Units/ML Vial SUBCUT SCH ×2 (10:59→21:13)
[2018-06-21] MEDS: Multivitamins, Therapeutic with Minerals Tab PO SCH (10:59)
[2018-06-21] MEDS: Celecoxib 100 MG Cap PO SCH (10:59)
[2018-06-21] MEDS: Vitamin B Complex Cap PO SCH (10:59)
[2018-06-21] MEDS: Insulin Glarg,Human.Rec.Analog 100 UNIT/ML ML SUBCUT SCH ×2 (10:59→21:14)
[2018-06-21] MEDS: Cholecalciferol (Vitamin D3) 1,000 Unit Tab PO SCH (10:59)
[2018-06-21] MEDS: Calcium Carbonate/Vitamin D3 1250 MG-200 Unit Tab PO SCH (10:59)
[2018-06-21] MEDS: Aspirin 81 MG Tab.EC PO SCH (10:59)
[2018-06-21] MEDS: Capsaicin 0.025% Crm 60 GM Tube TOP SCH ×2 (11:01→21:16)
[2018-06-21] MEDS: Lisinopril 5 MG Tab PO SCH (11:05)
[2018-06-21] MEDS: Piperacillin/Tazobactam 3.375 GM in Sodium Chloride 0.9% 100 ML IV SCH ×2 (11:45→17:56)
[2018-06-21 14:09] LABS: ANION GAP 18.1; CHLORIDE,CL 110 mmol/L (101-111); SODIUM,NA 138 mmol/L (135-145)
[2018-06-21] MEDS: Insulin Isophane NPH, Human 100 Units/ML 10 ML Vial SUBCUT SCH ×2 (18:10→21:13)
[2018-06-21] MEDS: Simvastatin 10 MG Tab PO SCH (21:11)
[2018-06-21] MEDS: Fluticasone Propionate Nasal Spray 16 GM Bottle NASBOTH SCH (21:15)
[2018-06-22] MEDS: Piperacillin/Tazobactam 3.375 GM in Sodium Chloride 0.9% 100 ML IV SCH ×5 (00:45→23:39)
[2018-06-22 07:07] LABS: ANION GAP 9.7; CHLORIDE,CL 114 mmol/L (101-111); SODIUM,NA 139 mmol/L (135-145)
[2018-06-22] MEDS: Sodium Chloride 0.9% 1,000 ML IV SCH ×2 (07:17→17:48)
[2018-06-22] MEDS: Insulin Isophane NPH, Human 100 Units/ML 10 ML Vial SUBCUT SCH (08:16)
[2018-06-22] MEDS: Gabapentin 100 MG Cap PO SCH ×2 (09:05→20:53)
[2018-06-22] MEDS: Vitamin B Complex Cap PO SCH (09:05)
[2018-06-22] MEDS: Celecoxib 100 MG Cap PO SCH (09:05)
[2018-06-22] MEDS: Aspirin 81 MG Tab.EC PO SCH (09:06)
[2018-06-22] MEDS: Lisinopril 5 MG Tab PO SCH (09:06)
[2018-06-22] MEDS: Multivitamins, Therapeutic with Minerals Tab PO SCH (09:06)
[2018-06-22] MEDS: Calcium Carbonate/Vitamin D3 1250 MG-200 Unit Tab PO SCH (09:06)
[2018-06-22] MEDS: Insulin Glarg,Human.Rec.Analog 100 UNIT/ML ML SUBCUT SCH ×2 (09:07→21:12)
[2018-06-22] MEDS: Cholecalciferol (Vitamin D3) 1,000 Unit Tab PO SCH (09:07)
[2018-06-22] MEDS: Heparin Sodium 5,000 Units/ML Vial SUBCUT SCH ×2 (09:10→20:56)
[2018-06-22] MEDS: Sodium Chloride 0.9% 10 ML Syringe FLUSH PRN (09:11)
[2018-06-22] MEDS: Capsaicin 0.025% Crm 60 GM Tube TOP SCH ×2 (09:14→21:02)
[2018-06-22] MEDS: Albuterol/Ipratropium 3.0-0.5 MG/3 ML Neb Soln NEB PRN ×2 (10:32→16:12)
--- NOTE | 2018-06-22 11:01 | PCM.PN ---
- General Info Date of Service: 06/22/18 Subjective Update: Patient has no new complaint today Still feeling weak. Denies significant cough. Denies abdominal pain. - Review of Systems General: Reports: No Symptoms, Weakness Pulmonary: Reports: Shortness of Breath Cardiovascular: Reports: No Symptoms Gastrointestinal: Reports: No Symptoms Musculoskeletal: Reports: No Symptoms - Patient Data Vitals - Most Recent: Last Vital Signs Temp 36.3 C 06/22/18 07:55 Pulse 69 06/22/18 10:33 Resp 20 06/22/18 07:55 BP 134/56 L 06/22/18 09:06 Pulse Ox 98 06/22/18 10:33 Weight - Most Recent: 78.562 kg I&O - Last 24 Hours: Intake & Output 06/21/18 06/22/18 06/22/18 22:59 06:59 14:59 Intake Total 1769 1400 Output Total 600 300 Balance 1169 1100 Lab Results Last 24 Hours: Laboratory Results - last 24 hr 06/21/18 06/21/18 06/21/18 Range/Units 11:05 13:02 13:07 WBC (5.0-10.0) 10^3/uL RBC (4.2-5.4) 10^6/uL Hgb (12.0-16.0) g/dL Hct (37.0-47.0) % MCV (80-100) fL MCH (27.0-34.0) pg MCHC (33.0-35.0) g/dL Plt Count (150-450) 10^3/uL Sodium 138 (135-145) mmol/L Potassium 4.1 (3.6-5.0) mmol/L Chloride 110 (101-111) mmol/L Carbon Dioxide 14.0 L (21.0-31.0) mmol/L Anion Gap 18.1 BUN 7 (7-18) mg/dL Creatinine 0.7 (0.6-1.3) mg/dL Est Cr Clr Drug Dosing 64.21 mL/min Estimated GFR (MDRD) > 60 Glucose 294 H (74-105) mg/dL POC Glucose 221 H (70-105) mg/dl Lactic Acid 4.0 H (0.5-2.2) mmol/L Calcium 7.8 L (8.4-10.2) mg/dl 06/21/18 06/21/18 06/21/18 Range/Units 16:47 17:15 20:56 WBC (5.0-10.0) 10^3/uL RBC (4.2-5.4) 10^6/uL Hgb (12.0-16.0) g/dL Hct (37.0-47.0) % MCV (80-100) fL MCH (27.0-34.0) pg MCHC (33.0-35.0) g/dL Plt Count (150-450) 10^3/uL Sodium (135-145) mmol/L Potassium (3.6-5.0) mmol/L Chloride (101-111) mmol/L Carbon Dioxide (21.0-31.0) mmol/L Anion Gap BUN (7-18) mg/dL Creatinine (0.6-1.3) mg/dL Est Cr Clr Drug Dosing mL/min Estimated GFR (MDRD) Glucose (74-105) mg/dL POC Glucose 280 H 182 H (70-105) mg/dl Lactic Acid 1.5 (0.5-2.2) mmol/L Calcium (8.4-10.2) mg/dl 06/22/18 06/22/18 06/22/18 Range/Units 06:22 06:22 07:39 WBC 12.2 H (5.0-10.0) 10^3/uL RBC 3.23 L (4.2-5.4) 10^6/uL Hgb 9.2 L D (12.0-16.0) g/dL Hct 28.7 L (37.0-47.0) % MCV 88.9 (80-100) fL MCH 28.5 (27.0-34.0) pg MCHC 32.1 L (33.0-35.0) g/dL Plt Count 210 (150-450) 10^3/uL Sodium 139 (135-145) mmol/L Potassium 3.7 (3.6-5.0) mmol/L Chloride 114 H (101-111) mmol/L Carbon Dioxide 19.0 L (21.0-31.0) mmol/L Anion Gap 9.7 BUN 12 (7-18) mg/dL Creatinine 0.7 (0.6-1.3) mg/dL Est Cr Clr Drug Dosing 64.21 mL/min Estimated GFR (MDRD) > 60 Glucose 97 (74-105) mg/dL POC Glucose 105 (70-105) mg/dl Lactic Acid (0.5-2.2) mmol/L Calcium 7.8 L (8.4-10.2) mg/dl Bull Results Last 24 Hours: Microbiology 06/21/18 06:41 Aerobic Blood Culture - Preliminary Blood - Venous - Lab Draw NO GROWTH AFTER 1 DAY Anaerobic Blood Culture - Preliminary NO GROWTH AFTER 1 DAY 06/21/18 06:37 Aerobic Blood Culture - Preliminary Blood - Venous NO GROWTH AFTER 1 DAY Anaerobic Blood Culture - Preliminary NO GROWTH AFTER 1 DAY Med Orders - Current: Current Medications Acetaminophen (Tylenol) 650 mg PO Q6H PRN PRN Reason: Pain (Mild 1-3)/fever Albuterol/Ipratropium (Duoneb 3.0-0.5 Mg/3 Ml) 3 ml NEB Q4HRRT PRN PRN Reason: shortness of breath/wheezing Last Admin: 06/22/18 10:32 Dose: 3 ml Aspirin (Halfprin) 81 mg PO DAILY [facility] Last Admin: 06/22/18 09:06 Dose: 81 mg Bisacodyl (Dulcolax) 5 mg PO DAILY PRN PRN Reason: Constipation Calcium Carbonate (Calcium Carbonate/Vitamin D 1250 Mg-200 Unit) 1 tab PO DAILY [facility] Last Admin: 06/22/18 09:06 Dose: 1 tab Capsaicin (Zostrix 0.025% Crm) 0 gm TOP BID [facility] Last Admin: 06/22/18 09:14 Dose: Not Given Celecoxib (Celebrex) 200 mg PO DAILY [facility] Last Admin: 06/22/18 09:05 Dose: 200 mg Cholecalciferol (Vitamin D3) 1,000 units PO DAILY [facility] Last Admin: 06/22/18 09:07 Dose: 1,000 units Fluticasone Propionate (Flonase) 0 gm NASBOTH BEDTIME [facility] Last Admin: 06/21/18 21:15 Dose: 2 spray Gabapentin (Neurontin) 200 mg PO BID [facility] Last Admin: 06/22/18 09:05 Dose: 200 mg Heparin Sodium (Porcine) (Heparin Sodium) 5,000 units SUBCUT Q12HR [facility] Last Admin: 06/22/18 09:10 Dose: 5,000 units Sodium Chloride (Normal Saline) 1,000 mls @ 100 mls/hr IV ASDIRECTED [facility] Last Admin: 06/22/18 07:17 Dose: 100 mls/hr Piperacillin Sod/Tazobactam (Sod 3.375 gm/ Sodium Chloride) 100 mls @ 200 mls/ hr IV Q6H [facility] Last Infusion: 06/22/18 06:30 Dose: Infused Insulin Glargine (Lantus) 15 unit SUBCUT BID [facility] Last Admin: 06/22/18 09:07 Dose: 15 units Insulin Human Lispro (Humalog) 0 unit SUBCUT ACBED [facility]; Protocol Lidocaine (Lidoderm 5%) 1,400 mg TOP Q12HR PRN PRN Reason: Pain Lisinopril (Prinivil) 2.5 mg PO DAILY [facility] Last Admin: 06/22/18 09:06 Dose: 2.5 mg Magnesium Hydroxide (Milk Of Magnesia) 30 ml PO Q12HR PRN PRN Reason: Constipation Multivitamins/Minerals (Vitamins And Minerals) 1 tab PO DAILY [facility] Last Admin: 06/22/18 09:06 Dose: 1 tab Non-Formulary Medication (Diclofenac Sodium [Voltaren 1% Gel]) 1 applic TP QID [facility] Non-Formulary Medication (Saxagliptin Hcl [Onglyza]) 5 mg PO DAILY [facility] Ondansetron HCl (Zofran) 4 mg IVPUSH Q8HR PRN PRN Reason: Nausea/Vomiting Simvastatin (Zocor) 20 mg PO BEDTIME [facility] Last Admin: 06/21/18 21:11 Dose: 20 mg Sodium Chloride (Saline Flush) 10 ml FLUSH ASDIRECTED PRN PRN Reason: Keep Vein Open Last Admin: 06/22/18 09:11 Dose: 10 ml Vitamin B Complex (Vitamin B Complex) 1 each PO DAILY [facility] Last Admin: 06/22/18 09:05 Dose: 1 each Discontinued Medications Albuterol/Ipratropium (Duoneb 3.0-0.5 Mg/3 Ml) 3 ml NEB Q4H PRN PRN Reason: shortness of breath/wheezing Sodium Chloride (Normal Saline) 1,000 mls @ 999 mls/hr IV .BOLUS ONE Stop: 06/21/18 07:11 Last Admin: 06/21/18 06:14 Dose: 999 mls/hr Piperacillin Sod/Tazobactam (Sod 3.375 gm/ Sodium Chloride) 100 mls @ 200 mls/ hr IV ONETIME ONE Stop: 06/21/18 06:46 Last Admin: 06/21/18 06:50 Dose: 200 mls/hr Potassium Chloride 10 meq/ (Premix) 100 mls @ 100 mls/hr IV ONETIME ONE Stop: 06/21/18 07:20 Last Admin: 06/21/18 06:49 Dose: 100 mls/hr Magnesium Sulfate 2 gm/ Premix 50 mls @ 25 mls/hr IV ONETIME ONE Stop: 06/21/18 08:35 Last Admin: 06/21/18 06:49 Dose: 25 mls/hr Sodium Chloride (Normal Saline) 1,000 mls @ 999 mls/hr IV .BOLUS DOLORES Sodium Chloride (Normal Saline) 1,000 mls @ 999 mls/hr IV .BOLUS ONE Stop: 06/21/18 11:30 Last Admin: 06/21/18 09:17 Dose: 999 mls/hr Insulin Human NPH (Novolin N) 0 unit SUBCUT 07,11,17,21 DOLORES; Protocol Last Admin: 06/22/18 08:16 Dose: Not Given Magnesium Hydroxide (Milk Of Magnesia) 30 ml PO Q12H PRN PRN Reason: Constipation Ondansetron HCl (Zofran) 4 mg IVPUSH Q8H PRN PRN Reason: Nausea/Vomiting - Exam Quality Assessment: Supplemental Oxygen General: Alert, Oriented Lungs: Normal Respiratory Effort, Decreased Breath Sounds GI/Abdominal Exam: Normal Bowel Sounds, Soft, Non-Tender, No Organomegaly, No Distention, No Abnormal Bruit, No Mass, Pelvis Stable - Problem List Review Problem List Initiated/Reviewed/Updated: Yes - My Orders Last 24 Hours: My Active Orders 06/23/18 09:44 CBC W/O DIFF,HEMOGRAM [HEME] Routine - Plan Plan:: AssessmentSimon Rodriguez is a 53 year old female with past medical history significant for diabetes , asthma and marijuana use. Patient was brought to the ER via EMS with shortness of breath. Patient said she woke up with shortness of breath this morning. This was associated with wheezing. She thinks this is flare of her asthma. In the ER her vitals were essentially unremarkable accept for mild tachycardia. Significant labs include WBC 17.8, lactic acid 5.7, anion gap 23, CO2 15, potassium replacement 0, magnesium 1.6, blood alcohol level 234. Chest x-ray was concerning for atelectasis versus infiltrate. Plan Acute respiratory failure due to asthma exacerbation Abdomen patient to Gen. medical floors Monitor vitals Monitor on telemetry Supplemental oxygen as needed Duo-nebs every 4 hourly Solu-Medrol 40 mg 3 times a day Respiratory to assess and treat as needed High anion gap metabolic acidosis due to sepsis versus lactic acidosis from nebulizer use Repeat labs including lactate IV fluid Possible sepsis due to possible pneumonia - POA Patient's was febrile, tachycardia, chest x-ray showed left lower hemithorax concerning for infiltrate vs atelectasis with elevated lactic acid This could be due to possible pneumonia most likely aspiration pneumonia Blood cultures, sputum for Gram stain and culture, urine culture Continue intravenous Zosyn started at admission Possible Pneumonia CXR showed left lower hemithorax concerning for infiltrate vs atelectasis Continue IV Zosyn as above Follow cultures Hypomagnesemia IV replacement Hypokalemia Replace IV Alcohol intoxication Patient denies drinking alcohol daily EtoH was 234 on admit Intravenous fluids Marijuana abuse Patient advised to quit using recreational substances Type 2 diabetes Supple optimally controlled POC glucose 4 times daily Sliding-scale insulin for optimal glycemic control Hypoglycemia protocol Diabetic neuropathy Continue gabapentin Diet Consistent carbohydrate diet Full code
[2018-06-22] MEDS: SAXAGLIPTIN HCL 5 MG PO SCH ×2 (11:23→11:54)
[2018-06-22] MEDS: Insulin Lispro 100 Units/ML 3 ML Vial SUBCUT SCH ×3 (11:33→21:10)
[2018-06-22] MEDS: Non-Formulary Medication 1 Each (Diclofenac Sodium [Voltaren 1% Gel] 1 APPLIC) TP SCH (11:37)
[2018-06-22] MEDS: methylPREDNISolone Sodium Succinate 40 MG/1 ML SDV IVPUSH SCH ×2 (14:07→20:58)
[2018-06-22] MEDS: Simvastatin 10 MG Tab PO SCH (20:53)
[2018-06-22] MEDS: Fluticasone Propionate Nasal Spray 16 GM Bottle NASBOTH SCH (20:56)
[2018-06-23] MEDS: Sodium Chloride 0.9% 1,000 ML IV SCH (03:51)
[2018-06-23] MEDS: Piperacillin/Tazobactam 3.375 GM in Sodium Chloride 0.9% 100 ML IV SCH ×2 (05:33→12:00)
[2018-06-23] MEDS: Insulin Lispro 100 Units/ML 3 ML Vial SUBCUT SCH ×4 (07:58→21:27)
[2018-06-23] MEDS: Celecoxib 100 MG Cap PO SCH (08:41)
[2018-06-23] MEDS: Calcium Carbonate/Vitamin D3 1250 MG-200 Unit Tab PO SCH (08:42)
[2018-06-23] MEDS: Multivitamins, Therapeutic with Minerals Tab PO SCH (08:43)
[2018-06-23] MEDS: Vitamin B Complex Cap PO SCH (08:43)
[2018-06-23] MEDS: Gabapentin 100 MG Cap PO SCH ×2 (08:44→21:28)
[2018-06-23] MEDS: Aspirin 81 MG Tab.EC PO SCH (08:44)
[2018-06-23] MEDS: Cholecalciferol (Vitamin D3) 1,000 Unit Tab PO SCH (08:45)
[2018-06-23] MEDS: Lisinopril 5 MG Tab PO SCH (08:46)
[2018-06-23] MEDS: SAXAGLIPTIN HCL 5 MG PO SCH (08:47)
[2018-06-23] MEDS: Capsaicin 0.025% Crm 60 GM Tube TOP SCH ×2 (08:48→21:33)
[2018-06-23] MEDS: Heparin Sodium 5,000 Units/ML Vial SUBCUT SCH ×2 (08:49→21:31)
[2018-06-23] MEDS: Insulin Glarg,Human.Rec.Analog 100 UNIT/ML ML SUBCUT SCH ×2 (09:37→21:26)
--- NOTE | 2018-06-23 11:09 | PN ---
DATE: 06/23/2018 SUBJECTIVE: Ms. Michael Tim is a 63-year-old female with medical history significant for hypertension, diabetes mellitus, history of asthma, history of marijuana use, admitted with increasing shortness of breath and noted to have acute respiratory failure due to asthma exacerbation with underlying pneumonia and sepsis. For the last 24 hours, the patient was continued on IV fluids, IV antibiotics. She denies any ongoing chest pains. No shortness of breath. No abdominal pain. No nausea. No vomiting. No diarrhea. REVIEW OF SYSTEMS: Cardiovascular, respiratory, gastrointestinal, neurology, constitutional were all evaluated. OBJECTIVE: Vitals Signs: Temperature of 97.9, pulse of 52, blood pressure 157/74, respiratory rate 16, and saturating at 95% on room air. General Appearance: Patient is well oriented to time, place, and person. Follows commands spontaneously. Cardiovascular System: S1, S2 heard with normal intensity. No gallops. Respiratory System: Clear to auscultation bilaterally. No wheeze. No crepitations. Abdomen: Soft. Bowel sounds positive. Nontender. No rigidity. Extremities: No edema bilateral lower extremities. Neurologic: No gross focal neurological deficit. MEDICATIONS: Reviewed. Continue with Tylenol 650 every 4 hours as needed for pain and fever, DuoNeb every 4 hours, aspirin 81 mg daily, Celebrex 200 mg daily, vitamin D3 1000 units daily, Flonase at bedtime, Neurontin 200 mg twice a day, Lantus 15 units twice a day, Humalog at bedtime, lisinopril 5 mg daily, methylprednisone 40 mg IV 3 times a day, Zofran as needed for nausea and vomiting, Zosyn IV q.6 hourly, and Zocor 20 mg at bedtime. LABORATORY DATA: Labs reviewed. WBC 9.2, hemoglobin 10.1, hematocrit 31.3, platelet count 222. ASSESSMENT: 1. Acute asthma exacerbation. 2. Pneumonia. 3. Sepsis. 4. Metabolic acidosis, resolved. 5. Hypertension. 6. Type 2 diabetes mellitus. 7. Hyperlipidemia. 8. Hypomagnesemia, resolved. 9. Hypokalemia. 10.Alcohol use. PLAN: 1. Pneumonia. The patient is currently on Zosyn, we will continue the same. So for cultures remained negative. We will follow the sputum cultures and titrate the antibiotics. 2. Acute asthma exacerbation. The patient has been on nebulizer treatment and IV methylprednisolone. We will switch her to oral prednisone today. No wheeze noted on the lung exam. 3. High anion gap metabolic acidosis. We will recheck a basic metabolic panel. She was treated with IV fluids. We will discontinue the IV fluids. 4. Possible sepsis, seems to be resolved. The patient remains afebrile. No leukocytosis today. Continue with current antibiotic regimen. 5. Electrolyte imbalance. The patient was noted to have hypokalemia and hypomagnesium at the time of admission. We will recheck a basic metabolic panel in a.m. 6. Type 2 diabetes mellitus, uncontrolled. The patient noted to have elevated blood sugar. This could be steroid-induced. Continue supplemental scale insulin. Continue with insulin regimen as scheduled. Once we decrease her steroid dose, hopefully the sugars will get better. 7. DVT prophylaxis. We will have her on continue with the heparin subcutaneously q.12 hourly for DVT prophylaxis. [facility] /[id number]
[2018-06-23] MEDS: Sodium Chloride 0.9% 10 ML Syringe FLUSH PRN (11:56)
[2018-06-23] MEDS: predniSONE 20 MG Tab PO SCH (12:53)
[2018-06-23] MEDS: Amoxicillin/Clavulanate K 500-125 MG Tab PO SCH ×2 (13:42→21:28)
[2018-06-23] MEDS: Fluticasone Propionate Nasal Spray 16 GM Bottle NASBOTH SCH (21:28)
[2018-06-23] MEDS: Simvastatin 10 MG Tab PO SCH (21:29)
[2018-06-24] MEDS: Amoxicillin/Clavulanate K 500-125 MG Tab PO SCH (05:44)
[2018-06-24 06:28] LABS: ANION GAP 12.2; CHLORIDE,CL 109 mmol/L (101-111); SODIUM,NA 141 mmol/L (135-145)
[2018-06-24] MEDS: Insulin Lispro 100 Units/ML 3 ML Vial SUBCUT SCH ×2 (07:43→12:21)
[2018-06-24] MEDS: Lisinopril 5 MG Tab PO SCH (09:19)
[2018-06-24] MEDS: Gabapentin 100 MG Cap PO SCH (09:20)
[2018-06-24] MEDS: Vitamin B Complex Cap PO SCH (09:20)
[2018-06-24] MEDS: Cholecalciferol (Vitamin D3) 1,000 Unit Tab PO SCH (09:21)
[2018-06-24] MEDS: Celecoxib 100 MG Cap PO SCH (09:21)
[2018-06-24] MEDS: Multivitamins, Therapeutic with Minerals Tab PO SCH (09:21)
[2018-06-24] MEDS: Calcium Carbonate/Vitamin D3 1250 MG-200 Unit Tab PO SCH (09:22)
[2018-06-24] MEDS: Aspirin 81 MG Tab.EC PO SCH (09:23)
[2018-06-24] MEDS: predniSONE 20 MG Tab PO SCH (09:23)
[2018-06-24] MEDS: Heparin Sodium 5,000 Units/ML Vial SUBCUT SCH (09:24)
[2018-06-24] MEDS: Insulin Glarg,Human.Rec.Analog 100 UNIT/ML ML SUBCUT SCH (09:28)
[2018-06-24] MEDS: SAXAGLIPTIN HCL 5 MG PO SCH (09:31)
[2018-06-24] MEDS: Capsaicin 0.025% Crm 60 GM Tube TOP SCH (09:31)
[2018-06-24] MEDS ORDERED: Potassium Chloride 10 MEQ Tab.ER PO SCH (12:00)
--- NOTE | 2018-06-24 19:21 | DISCH ---
ADMITTING DIAGNOSES: 1. Acute respiratory failure. 2. Acute asthma exacerbation. 3. Possible sepsis. 4. Pneumonia. 5. Hypomagnesemia. 6. Hypokalemia. 7. Alcohol intoxication. 8. Type 2 diabetes mellitus. DISCHARGE DIAGNOSES: 1. Acute hypoxic respiratory failure, resolved. 2. Acute asthma exacerbation, resolved. 3. High anion gap metabolic acidosis due to sepsis, resolved. 4. Sepsis, resolved. 5. Pneumonia, resolved with antibiotics, switched to oral antibiotic. 6. Hypokalemia and hypomagnesemia, resolved. HISTORY OF PRESENT ILLNESS: Ms. Iman Rodriguez is a 63-year-old female with medical history significant for hypertension, hyperlipidemia, type 2 diabetes mellitus, history of asthma, marijuana use, and alcohol use, admitted to the hospital with increasing shortness of breath and was noted to have pneumonia leading to asthma exacerbation and possible sepsis. The patient was admitted and was started on nebulizer treatment and also Solu-Medrol IV. The patient responded well to the treatment. She was also noted to be in acute hypoxic respiratory failure requiring nasal cannula oxygen at the time of admission, which got resolved at the time of discharge. Chest x-ray showed some haziness in the left lower hemithorax concerning for infiltrates versus atelectasis. The patient had a blood alcohol level of 234 at the time of admission. She is educated about alcohol cessation and strongly encouraged her to quit drinking, which she understands and verbalized the same. She is given oral antibiotic with Augmentin as well as prednisone steroid dosing at a tapered dose. She will continue with her inhalation treatment at home. She is discharged home in stable condition. She is advised to follow with her primary care physician in the next 1 week of time. DISCHARGE MEDICATIONS: Include: 1. Tylenol 1000 mg every 6 hours as needed for pain. 2. Albuterol 1 puff inhalation every 6 hours as needed for shortness of breath. 3. Augmentin 500/125 mg 1 tablet every 8 hours for 5 days. 4. Aspirin 81 mg daily. 5. Calcium carbonate with vitamin D 1 tablet daily. 6. Capsaicin cream topically twice a day. 7. Celecoxib 200 mg oral daily. 8. Vitamin D3 1000 units daily. 9. Diclofenac gel topical 4 times daily. 10.Flonase nasal at bedtime. 11.Neurontin 200 mg twice a day. 12.Levemir 15 units twice daily. 13.Lidoderm transdermal patch every 12 hours as needed. 14.Lisinopril 5 mg daily. 15.Loratadine 10 mg daily. 16.Multivitamin 1 tablet daily. 17.Potassium chloride 20 mEq twice a day for the next 7 days. 18.Saxagliptin 5 mg daily. 19.Simvastatin 20 mg at bedtime. 20.Vitamin B complex 1 tablet daily. 21.Metformin 1000 mg twice a day. 22.Prednisone tapered dose. PHYSICAL EXAMINATION: On the day of discharge: Vital Signs: Temperature of 98, pulse of 46, blood pressure 148/59, respiratory rate of 16, and saturating at 99% on room air. General Appearance: The patient is well oriented to time, place, and person. Follows commands spontaneously. Cardiovascular System: S1 and S2 heard with normal intensity. No gallops. Respiratory System: Clear to auscultation bilaterally. No wheeze. No crepitations. Abdomen: Soft. Bowel sounds positive. Nontender. No rigidity. Extremities: No edema in bilateral lower extremities. Neurology: No gross focal neurological deficits. CONDITION ON ADMISSION: Poor. CONDITION ON DISCHARGE: Stable. DISPOSITION: Discharged to home. ACTIVITY: As tolerated. DIET: Cardiac healthy diet with consistent carbohydrate diet. FOLLOWUP: Follow with primary care physician in the next 1 week of time. Spent over 35 minutes of time in evaluating and treating this patient and discharge planning. [facility] /[id number]
== END 2018-06-24 12:30 | disposition home or self-care (01) | DRG 871 ==
LOC: DL.ED 05:21 → UNDOADMIN 06:39 → DL.MS 06:39
PROVIDERS: ADMIT Student in an Organized Health Care Education/Training Program; ATTEND Student in an Organized Health Care Education/Training Program
DX: A41.9 Sepsis, unspecified organism (principal); J18.1 Lobar pneumonia, unspecified organism; J96.01 Acute respiratory failure with hypoxia; J45.21 Mild intermittent asthma with (acute) exacerbation; E87.2 Acidosis; Y90.7 Blood alcohol level of 200-239 mg/100 ml; H54.7 Unspecified visual loss; E83.42 Hypomagnesemia; I10 Essential (primary) hypertension; M19.91 Primary osteoarthritis, unspecified site; E87.6 Hypokalemia; F12.10 Cannabis abuse, uncomplicated; F10.120 Alcohol abuse with intoxication, uncomplicated; E11.40 Type 2 diabetes mellitus with diabetic neuropathy, unspecified; Z90.49 Acquired absence of other specified parts of digestive tract; Z88.5 Allergy status to narcotic agent; Z79.82 Long term (current) use of aspirin; Z79.4 Long term (current) use of insulin; Z87.891 Personal history of nicotine dependence; Z79.899 Other long term (current) drug therapy
CPT/HCPCS: 36415; 71045; 80048; 80053; 80305-QW; 81003; 82962; 83605; 83735; 84100; 84484; 85025; 85027; 87040; 93005; 94640; 96361; 96365; 96366; 96368; 99284; 99285-25; A9270-GY; G0480; J1644; J1815; J1815-GY; J2543; J2920; J3475; J3480; J7030; J7040; J7050; J7620-GY

== ENCOUNTER 2019-04-17 11:35 | Emergency (ER) | payer OTHER ==
[2019-04-17] MEDS ORDERED: Sodium Chloride 0.9% 10 ML Syringe FLUSH PRN (11:47)
[2019-04-17] MEDS ORDERED: Nitroglycerin 0.4 MG Tab.SL SL PRN (11:47)
--- NOTE | 2019-04-17 11:57 | EDM.PDOC ---
<Francisco Javier Emery - Last Filed: 04/17/19 13:29> ED HPI GENERAL MEDICAL PROBLEM - General Chief Complaint: Cardiovascular Problem Stated Complaint: AMBULANCE Time Seen by Provider: 04/17/19 11:52 Source of Information: Reports: Patient, RN, RN Notes Reviewed History Limitations: Reports: No Limitations - History of Present Illness INITIAL COMMENTS - FREE TEXT/NARRATIVE: Patient arrives to ED via ambulance with complaints of chest pain and shortness of breath x4 days. She has not been around any sick contacts but states she recently got a cold and has been coughing a lot. Her chest pain is reproducible with palpation and her chest wall is tender to palpation. She is having a hard time taking a deep breath and feels generally weak and has a headache that just came on this morning. She does not suffer from heartburn or GERD. She denies any drugs or alcohol use. Duration: Day(s): (4 days), Constant Location: Reports: Chest Quality: Reports: Ache, Sharp Severity: Mild Improves with: Reports: None Worsens with: Reports: None Associated Symptoms: Reports: Chest Pain, Cough, Headaches, Shortness of Breath , Weakness. Denies: Fever/Chills, Loss of Appetite, Nausea/Vomiting, Syncope - Related Data Allergies Allergy/AdvReac Type Severity Reaction Status Date / Time codeine AdvReac Vomiting Verified 06/21/18 07:32 Home Meds: Home Meds Acetaminophen 1,000 mg PO Q6H PRN 06/21/18 [History] Albuterol Sulfate [Proair Hfa] 1 puff INH Q6H PRN 06/21/18 [History] Aspirin [Halfprin] 81 mg PO DAILY 06/21/18 [History] Calcium Citrate/Vitamin D3 [Calcium Citrate - Vit D Tablet] 1 tab PO DAILY 06/21 [History] Capsaicin [Zostrix 0.025% Crm] 1 applic TOP BID 06/21/18 [History] Celecoxib 200 mg PO DAILY 06/21/18 [History] Cholecalciferol (Vitamin D3) [Vitamin D3] 1,000 units PO DAILY 06/21/18 [History ] Diclofenac Sodium [Voltaren 1% Gel] 1 applic TP QID 06/21/18 [History] Fluticasone Propionate [Flonase] 1 spr NS BEDTIME 06/21/18 [History] Gabapentin [Neurontin] 200 mg PO BID 06/21/18 [History] Insulin Detemir [Levemir] 15 units SUBCUT BID 06/21/18 [History] Lidocaine 5% [Lidoderm 5%] 2 patch TOP Q12HR PRN 06/21/18 [History] Loratadine 10 mg PO DAILY 06/21/18 [History] Multivitamin with Minerals [Multivitamins with Minerals] 1 tab PO DAILY [History] Saxagliptin HCl [Onglyza] 5 mg PO DAILY 06/21/18 [History] Simvastatin 20 mg PO BEDTIME 06/21/18 [History] Vitamin B Comp W-C/FA/Zinc [Juana B Strong with C & Zinc Tb] 1 tab PO DAILY 06/21 [History] metFORMIN HCl [Metformin HCl] 1,000 mg PO BID 06/21/18 [History] Amoxicillin/Clavulanate K [Augmentin 500-125 MG] 1 tab PO Q8HR 5 Days #15 tablet 06/24/18 [Rx] Potassium Chloride [Klor-Con 10] 20 meq PO BIDMEALS 7 Days #14 tab.er 06/24/18 [ Rx] lisinopriL [Prinivil] 5 mg PO DAILY 30 Days #30 tablet 06/24/18 [Rx] predniSONE 20 mg PO WITHBREAKFAST 3 Days #3 tablet 06/24/18 [Rx] predniSONE [Prednisone] 5 mg PO DAILY 3 Days #3 tablet 06/24/18 [Rx] predniSONE [Prednisone] 10 mg PO DAILY 3 Days #3 tablet 06/24/18 [Rx] Past Medical History HEENT History: Reports: Impaired Vision Cardiovascular History: Reports: Hypertension Respiratory History: Reports: Asthma, Pneumonia, Recurrent Musculoskeletal History: Reports: Arthritis Psychiatric History: Reports: Addiction Endocrine/Metabolic History: Reports: Diabetes, Type II - Infectious Disease History Infectious Disease History: Reports: Chicken Pox - Past Surgical History GI Surgical History: Reports: Appendectomy, Cholecystectomy Social & Family History - Family History Family Medical History: Noncontributory - Caffeine Use Caffeine Use: Reports: Coffee Other Caffeine Use: Coffee daily ED ROS GENERAL - Review of Systems Review Of Systems: See Below Constitutional: Reports: Weakness. Denies: Fever, Chills, Night Sweats, Decreased Appetite Cardiovascular: Reports: Chest Pain. Denies: Edema, Lightheadedness, Palpitations, Syncope Endocrine: Reports: No Symptoms GI/Abdominal: Reports: Abdominal Pain (epigastric). Denies: Constipation, Diarrhea, Nausea, Vomiting : Reports: No Symptoms Musculoskeletal: Reports: No Symptoms Neurological: Reports: Headache, Weakness. Denies: Confusion, Dizziness, Numbness Psychiatric: Reports: No Symptoms Hematologic/Lymphatic: Reports: No Symptoms Immunologic: Reports: No Symptoms ED EXAM, GENERAL - Physical Exam Exam: See Below Exam Limited By: No Limitations General Appearance: Alert, WD/WN, Mild Distress. No: Anxious Head: Atraumatic, Normocephalic Neck: Normal Inspection, Supple, Non-Tender, Full Range of Motion Respiratory/Chest: No Respiratory Distress, Lungs Clear, Normal Breath Sounds, No Accessory Muscle Use, Chest Non-Tender. No: Rhonchi, Wheezing Cardiovascular: Normal Peripheral Pulses, Regular Rate, Rhythm, No Edema, No Gallop, No JVD, No Murmur, No Rub GI/Abdominal: Normal Bowel Sounds, Soft, No Organomegaly, No Distention, No Abnormal Bruit, No Mass, Tender (epigstric tenderness). No: Distended, Guarding , Rebound (Female) Exam: Deferred Rectal (Female) Exam: Deferred Extremities: Normal Inspection, Normal Range of Motion, Non-Tender, Normal Capillary Refill, No Pedal Edema Psychiatric: Normal Affect, Normal Mood Skin Exam: Warm, Dry, Intact, Normal Color, No Rash Lymphatic: No Adenopathy Course - Vital Signs Last Recorded V/S: Last Vital Signs Temp 98.2 F 04/17/19 11:40 Pulse 100 04/17/19 11:40 Resp 18 04/17/19 11:40 BP 143/88 H 04/17/19 11:55 Pulse Ox 100 04/17/19 11:40 - Orders/Labs/Meds Orders: Active Orders 24 hr Category Date Time Status EKG 12 Lead [EKG Documentation Completion] [RC] STAT Care 04/17/19 11:46 Active Peripheral IV Care [RC] . DIRECTED Care 04/17/19 11:47 Active Chest 1V Frontal [CR] Stat Exams 04/17/19 11:46 Taken Nitroglycerin [Nitrostat] Med 04/17/19 11:47 Active 0.4 mg SL Q5M PRN Sodium Chloride 0.9% [Saline Flush] Med 04/17/19 11:47 Active 10 ml FLUSH ASDIRECTED PRN Peripheral IV Insertion Adult [OM.PC] Stat Oth 04/17/19 11:46 Ordered Medication Orders Nitroglycerin (Nitrostat) 0.4 mg SL Q5M PRN PRN Reason: Chest Pain Last Admin: 04/17/19 11:55 Dose: 0.4 mg Sodium Chloride (Saline Flush) 10 ml FLUSH ASDIRECTED PRN PRN Reason: Keep Vein Open Last Admin: 04/17/19 11:54 Dose: 10 ml Labs: Laboratory Tests 04/17/19 04/17/19 04/17/19 Range/Units 12:00 12:00 12:00 WBC 9.4 (5.0-10.0) 10^3/uL RBC 4.10 L (4.2-5.4) 10^6/uL Hgb 11.1 L (12.0-16.0) g/dL Hct 34.4 L (37.0-47.0) % MCV 83.9 D (80-100) fL MCH 27.1 (27.0-34.0) pg MCHC 32.3 L (33.0-35.0) g/dL Plt Count 236 (150-450) 10^3/uL Neut % (Auto) 70.4 (42.2-75.2) % Lymph % (Auto) 21.6 (20.5-50.1) % Marin % (Auto) 6.3 (2-8) % Eos % (Auto) 1.5 (1.0-3.0) % Baso % (Auto) 0.2 (0.0-1.0) % D-Dimer, Quantitative 312 (0-400) ng/mL Sodium 140 (135-145) mmol/L Potassium 3.8 (3.6-5.0) mmol/L Chloride 106 (101-111) mmol/L Carbon Dioxide 24.0 (21.0-31.0) mmol/L Anion Gap 13.8 BUN 14 (7-18) mg/dL Creatinine 0.6 (0.6-1.3) mg/dL Est Cr Clr Drug Dosing 73.93 mL/min Estimated GFR (MDRD) > 60 BUN/Creatinine Ratio 23.33 Glucose 122 H (74-105) mg/dL Calcium 8.9 (8.4-10.2) mg/dl Total Bilirubin 0.5 (0.2-1.0) mg/dL AST 25 (10-42) IU/L ALT 19 (10-60) IU/L Alkaline Phosphatase 71 (42-121) IU/L Troponin I 0.02 (0.00-0.02) ng/ml B-Natriuretic Peptide 11 (0-100) pg/ml Total Protein 7.4 (6.7-8.2) g/dl Albumin 3.9 (3.2-5.5) g/dl Globulin 3.5 Albumin/Globulin Ratio 1.11 Amylase 52 (28-100) U/L Lipase 32 (22-51) U/L Urine Color (YELLOW) Urine Appearance (CLEAR) Urine pH (5.0-9.0) Ur Specific [place] (1.005-1.030) Urine Protein (NEGATIVE) Urine Glucose (UA) (NEGATIVE) Urine Ketones (NEGATIVE) Urine Occult Blood (NEGATIVE) Urine Nitrite (NEGATIVE) Urine Bilirubin (NEGATIVE) Urine Urobilinogen (0.2-1.0) mg/dL Ur Leukocyte Esterase (NEGATIVE) Urine Opiates Screen (NEGATIVE) Ur Oxycodone Screen (NEGATIVE) Urine Methadone Screen (NEGATIVE) Ur Barbiturates Screen (NEGATIVE) U Tricyclic Antidepress (NEGATIVE) Ur Phencyclidine Scrn (NEGATIVE) Ur Amphetamine Screen (NEGATIVE) U Methamphetamines Scrn (NEGATIVE) Urine MDMA Screen (NEGATIVE) U Benzodiazepines Scrn (NEGATIVE) Urine Cocaine Screen (NEGATIVE) U Marijuana (THC) Screen (NEGATIVE) Ethyl Alcohol < 5 mg/dL 04/17/19 04/17/19 Range/Units 12:54 12:54 WBC (5.0-10.0) 10^3/uL RBC (4.2-5.4) 10^6/uL Hgb (12.0-16.0) g/dL Hct (37.0-47.0) % MCV (80-100) fL MCH (27.0-34.0) pg MCHC (33.0-35.0) g/dL Plt Count (150-450) 10^3/uL Neut % (Auto) (42.2-75.2) % Lymph % (Auto) (20.5-50.1) % Marin % (Auto) (2-8) % Eos % (Auto) (1.0-3.0) % Baso % (Auto) (0.0-1.0) % D-Dimer, Quantitative (0-400) ng/mL Sodium (135-145) mmol/L Potassium (3.6-5.0) mmol/L Chloride (101-111) mmol/L Carbon Dioxide (21.0-31.0) mmol/L Anion Gap BUN (7-18) mg/dL Creatinine (0.6-1.3) mg/dL Est Cr Clr Drug Dosing mL/min Estimated GFR (MDRD) BUN/Creatinine Ratio Glucose (74-105) mg/dL Calcium (8.4-10.2) mg/dl Total Bilirubin (0.2-1.0) mg/dL AST (10-42) IU/L ALT (10-60) IU/L Alkaline Phosphatase (42-121) IU/L Troponin I (0.00-0.02) ng/ml B-Natriuretic Peptide (0-100) pg/ml Total Protein (6.7-8.2) g/dl Albumin (3.2-5.5) g/dl Globulin Albumin/Globulin Ratio Amylase (28-100) U/L Lipase (22-51) U/L Urine Color Yellow (YELLOW) Urine Appearance Clear (CLEAR) Urine pH 5.5 (5.0-9.0) Ur Specific [place] >= 1.030 (1.005-1.030) Urine Protein Negative (NEGATIVE) Urine Glucose (UA) Negative (NEGATIVE) Urine Ketones Trace H (NEGATIVE) Urine Occult Blood Negative (NEGATIVE) Urine Nitrite Negative (NEGATIVE) Urine Bilirubin Negative (NEGATIVE) Urine Urobilinogen 1.0 (0.2-1.0) mg/dL Ur Leukocyte Esterase Negative (NEGATIVE) Urine Opiates Screen Negative (NEGATIVE) Ur Oxycodone Screen Negative (NEGATIVE) Urine Methadone Screen Negative (NEGATIVE) Ur Barbiturates Screen Negative (NEGATIVE) U Tricyclic Antidepress Negative (NEGATIVE) Ur Phencyclidine Scrn Negative (NEGATIVE) Ur Amphetamine Screen Negative (NEGATIVE) U Methamphetamines Scrn Negative (NEGATIVE) Urine MDMA Screen Negative (NEGATIVE) U Benzodiazepines Scrn Negative (NEGATIVE) Urine Cocaine Screen Negative (NEGATIVE) U Marijuana (THC) Screen Negative (NEGATIVE) Ethyl Alcohol mg/dL Meds: Medications Generic Name Dose Route Start Last Admin Trade Name Freq PRN Reason Stop Dose Admin Nitroglycerin 0.4 mg 04/17/19 11:47 04/17/19 11:55 Nitrostat SL 0.4 mg Q5M PRN Administration Chest Pain Sodium Chloride 10 ml 04/17/19 11:47 04/17/19 11:54 Saline Flush FLUSH 10 ml ASDIRECTED PRN Administration Keep Vein Open Departure - Departure Disposition: Home, Self-Care 01 Clinical Impression: Non-cardiac chest pain, Encounter for medical screening examination Instructions: Nonspecific Chest Pain, [id number] Forms: ED Department Discharge Additional Instructions: Follow up in clinic if not feeling better by tomorrow. Happy Birthday! Sepsis Event Note - Focused Exam Vital Signs: Vital Signs Temp Pulse Resp BP BP Pulse Ox 04/17/19 11:55 143/88 H 04/17/19 11:40 98.2 F 100 18 153/77 H 100 - My Orders Last 24 Hours: My Active Orders 04/17/19 11:46 EKG 12 Lead [EKG Documentation Completion] [RC] STAT Chest 1V Frontal [CR] Stat Peripheral IV Insertion Adult [OM.PC] Stat 04/17/19 11:47 Peripheral IV Care [RC] . DIRECTED Nitroglycerin [Nitrostat] 0.4 mg SL Q5M PRN Sodium Chloride 0.9% [Saline Flush] 10 ml FLUSH ASDIRECTED PRN - Assessment/Plan Last 24 Hours: My Active Orders 04/17/19 11:46 EKG 12 Lead [EKG Documentation Completion] [RC] STAT Chest 1V Frontal [CR] Stat Peripheral IV Insertion Adult [OM.PC] Stat 04/17/19 11:47 Peripheral IV Care [RC] . DIRECTED Nitroglycerin [Nitrostat] 0.4 mg SL Q5M PRN Sodium Chloride 0.9% [Saline Flush] 10 ml FLUSH ASDIRECTED PRN <Kirill Fitzgerald - Last Filed: 04/17/19 13:30> ED HPI GENERAL MEDICAL PROBLEM Chest Pain Score (Numeric/FACES): 0 Course - Orders/Labs/Meds Labs: Laboratory Tests 04/17/19 04/17/19 04/17/19 Range/Units 12:00 12:00 12:00 WBC 9.4 (5.0-10.0) 10^3/uL RBC 4.10 L (4.2-5.4) 10^6/uL Hgb 11.1 L (12.0-16.0) g/dL Hct 34.4 L (37.0-47.0) % MCV 83.9 D (80-100) fL MCH 27.1 (27.0-34.0) pg MCHC 32.3 L (33.0-35.0) g/dL Plt Count 236 (150-450) 10^3/uL Neut % (Auto) 70.4 (42.2-75.2) % Lymph % (Auto) 21.6 (20.5-50.1) % Marin % (Auto) 6.3 (2-8) % Eos % (Auto) 1.5 (1.0-3.0) % Baso % (Auto) 0.2 (0.0-1.0) % D-Dimer, Quantitative 312 (0-400) ng/mL Sodium 140 (135-145) mmol/L Potassium 3.8 (3.6-5.0) mmol/L Chloride 106 (101-111) mmol/L Carbon Dioxide 24.0 (21.0-31.0) mmol/L Anion Gap 13.8 BUN 14 (7-18) mg/dL Creatinine 0.6 (0.6-1.3) mg/dL Est Cr Clr Drug Dosing 73.93 mL/min Estimated GFR (MDRD) > 60 BUN/Creatinine Ratio 23.33 Glucose 122 H (74-105) mg/dL Calcium 8.9 (8.4-10.2) mg/dl Total Bilirubin 0.5 (0.2-1.0) mg/dL AST 25 (10-42) IU/L ALT 19 (10-60) IU/L Alkaline Phosphatase 71 (42-121) IU/L Troponin I 0.02 (0.00-0.02) ng/ml B-Natriuretic Peptide 11 (0-100) pg/ml Total Protein 7.4 (6.7-8.2) g/dl Albumin 3.9 (3.2-5.5) g/dl Globulin 3.5 Albumin/Globulin Ratio 1.11 Amylase 52 (28-100) U/L Lipase 32 (22-51) U/L Urine Color (YELLOW) Urine Appearance (CLEAR) Urine pH (5.0-9.0) Ur Specific [place] (1.005-1.030) Urine Protein (NEGATIVE) Urine Glucose (UA) (NEGATIVE) Urine Ketones (NEGATIVE) Urine Occult Blood (NEGATIVE) Urine Nitrite (NEGATIVE) Urine Bilirubin (NEGATIVE) Urine Urobilinogen (0.2-1.0) mg/dL Ur Leukocyte Esterase (NEGATIVE) Urine Opiates Screen (NEGATIVE) Ur Oxycodone Screen (NEGATIVE) Urine Methadone Screen (NEGATIVE) Ur Barbiturates Screen (NEGATIVE) U Tricyclic Antidepress (NEGATIVE) Ur Phencyclidine Scrn (NEGATIVE) Ur Amphetamine Screen (NEGATIVE) U Methamphetamines Scrn (NEGATIVE) Urine MDMA Screen (NEGATIVE) U Benzodiazepines Scrn (NEGATIVE) Urine Cocaine Screen (NEGATIVE) U Marijuana (THC) Screen (NEGATIVE) Ethyl Alcohol < 5 mg/dL 04/17/19 04/17/19 Range/Units 12:54 12:54 WBC (5.0-10.0) 10^3/uL RBC (4.2-5.4) 10^6/uL Hgb (12.0-16.0) g/dL Hct (37.0-47.0) % MCV (80-100) fL MCH (27.0-34.0) pg MCHC (33.0-35.0) g/dL Plt Count (150-450) 10^3/uL Neut % (Auto) (42.2-75.2) % Lymph % (Auto) (20.5-50.1) % Marin % (Auto) (2-8) % Eos % (Auto) (1.0-3.0) % Baso % (Auto) (0.0-1.0) % D-Dimer, Quantitative (0-400) ng/mL Sodium (135-145) mmol/L Potassium (3.6-5.0) mmol/L Chloride (101-111) mmol/L Carbon Dioxide (21.0-31.0) mmol/L Anion Gap BUN (7-18) mg/dL Creatinine (0.6-1.3) mg/dL Est Cr Clr Drug Dosing mL/min Estimated GFR (MDRD) BUN/Creatinine Ratio Glucose (74-105) mg/dL Calcium (8.4-10.2) mg/dl Total Bilirubin (0.2-1.0) mg/dL AST (10-42) IU/L ALT (10-60) IU/L Alkaline Phosphatase (42-121) IU/L Troponin I (0.00-0.02) ng/ml B-Natriuretic Peptide (0-100) pg/ml Total Protein (6.7-8.2) g/dl Albumin (3.2-5.5) g/dl Globulin Albumin/Globulin Ratio Amylase (28-100) U/L Lipase (22-51) U/L Urine Color Yellow (YELLOW) Urine Appearance Clear (CLEAR) Urine pH 5.5 (5.0-9.0) Ur Specific [place] >= 1.030 (1.005-1.030) Urine Protein Negative (NEGATIVE) Urine Glucose (UA) Negative (NEGATIVE) Urine Ketones Trace H (NEGATIVE) Urine Occult Blood Negative (NEGATIVE) Urine Nitrite Negative (NEGATIVE) Urine Bilirubin Negative (NEGATIVE) Urine Urobilinogen 1.0 (0.2-1.0) mg/dL Ur Leukocyte Esterase Negative (NEGATIVE) Urine Opiates Screen Negative (NEGATIVE) Ur Oxycodone Screen Negative (NEGATIVE) Urine Methadone Screen Negative (NEGATIVE) Ur Barbiturates Screen Negative (NEGATIVE) U Tricyclic Antidepress Negative (NEGATIVE) Ur Phencyclidine Scrn Negative (NEGATIVE) Ur Amphetamine Screen Negative (NEGATIVE) U Methamphetamines Scrn Negative (NEGATIVE) Urine MDMA Screen Negative (NEGATIVE) U Benzodiazepines Scrn Negative (NEGATIVE) Urine Cocaine Screen Negative (NEGATIVE) U Marijuana (THC) Screen Negative (NEGATIVE) Ethyl Alcohol mg/dL Influenza A/B: negative - Radiology Interpretation Free Text/Narrative:: [facility] Final Radiology Report Call: [phone] assistance Online chat: [email or web address] Name: LEONILA FISH Age: 64Years F Date: 04/17/2019 SSN: -- : [id number] Study: XR CHEST 1 VIEW FRONTAL Requesting Physician: KIRILL FITZGERALD Images: 1 Addl Studies: Provided Clinical History: chest pain Contrast: Contrast Medium: Contrast Amount: Contrast Method: CONFIDENTIALITY STATEMENT This report is intended only for use by the referring physician, and only in accordance with law. If you received this in error, call [phone]. Page 1 of 1 PROCEDURE INFORMATION: Exam: XR Chest, 1 View Exam date and time: 04/17/2019 11:52 AM Age: 64 years old Clinical indication: Chest pain TECHNIQUE: Imaging protocol: XR of the chest Views: 1 view. COMPARISON: CR Chest 1V Frontal 06/21/2018 5:49 AM FINDINGS: Lungs: No consolidation. Minimal elevation of the right hemidiaphragm. Pleural space: Unremarkable. No pleural effusion. No pneumothorax. Heart/Mediastinum: Unremarkable. No cardiomegaly. Vasculature: Tortuosity of the thoracic aorta. Bones/joints: No acute findings. IMPRESSION: No acute findings. Thank you for allowing us to participate in the care of your patient. Dictated and Authenticated by: Ken Sue MD 04/17/2019 12:26 PM Central Time ([place] & [place]) - Re-Assessments/Exams Free Text/Narrative Re-Assessment/Exam: 04/17/19 I personally performed or re-performed the physical examination and medical decision making. I have verified all student documentation or findings, including history, physical exam and/or medical decision making. Departure - Departure Time of Disposition: 13:27 Condition: Good Sepsis Event Note - Focused Exam Date Exam was Performed: 04/17/19 Time Exam was Performed: 13:29
[2019-04-17 12:28] LABS: ANION GAP 13.8; CHLORIDE,CL 106 mmol/L (101-111); SODIUM,NA 140 mmol/L (135-145)
== END 2019-04-17 13:42 | disposition home or self-care (01) ==
LOC: DL.ED 11:35
DX: R07.89 Other chest pain (principal); I10 Essential (primary) hypertension; E11.9 Type 2 diabetes mellitus without complications; J45.909 Unspecified asthma, uncomplicated; M19.90 Unspecified osteoarthritis, unspecified site; Z88.5 Allergy status to narcotic agent; Z79.899 Other long term (current) drug therapy; Z79.84 Long term (current) use of oral hypoglycemic drugs
CPT/HCPCS: 36415; 71045; 80053; 80305; 80307; 81003; 82150; 83690; 83880; 84484; 85025; 85379; 87804; 93005; 99285; A9270; 99283

== ENCOUNTER 2022-01-14 07:25 | Day surgery (SDC) | payer OTHER ==
[~2022-01-14 07:25] MED LIST: Dextrose 5%-0.45% NaCl 1,000 ML IV SCH; Midazolam 1 MG/ML 2 ML SDV ONE; Sodium Chloride 0.9% 10 ML Syringe FLUSH PRN; Sodium Chloride 0.9% 10 ML Syringe FLUSH SCH; fentaNYL 100 MCG/2 ML SDV ONE
[2022-01-14] MEDS ORDERED: fentaNYL 100 MCG/2 ML SDV IV ONE ×3 (07:26→08:25)
[2022-01-14] MEDS ORDERED: Midazolam 1 MG/ML 2 ML SDV IV ONE ×3 (07:26→08:27)
== END 2022-01-14 11:05 | disposition home or self-care (01) ==
LOC: DL.ENDO 07:25 → MERGE 08:30 → DL.ENDO 11:05
PROVIDERS: ATTEND Internal Medicine Gastroenterology
DX: K29.50 Unspecified chronic gastritis without bleeding (principal); B96.81 Helicobacter pylori [H. pylori] as the cause of diseases classified elsewhere; E66.09 Other obesity due to excess calories; E11.9 Type 2 diabetes mellitus without complications; Z68.26 Body mass index [BMI] 26.0-26.9, adult; Z90.49 Acquired absence of other specified parts of digestive tract; Z98.890 Other specified postprocedural states; Z88.5 Allergy status to narcotic agent
CPT/HCPCS: 43239; 87077; J2250; J3010; J7042

== ENCOUNTER 2022-01-22 05:31 | Day surgery (SDC) | payer OTHER ==
[~2022-01-22 05:31] MED LIST changes: -Dextrose 5%-0.45% NaCl 1,000 ML IV SCH; -Midazolam 1 MG/ML 2 ML SDV ONE; -Sodium Chloride 0.9% 10 ML Syringe FLUSH PRN; -fentaNYL 100 MCG/2 ML SDV ONE
[2022-01-22] MEDS ORDERED: Midazolam 1 MG/ML 2 ML SDV IV ONE ×6 (05:32→07:03)
[2022-01-22] MEDS ORDERED: fentaNYL 100 MCG/2 ML SDV IV ONE ×3 (05:32→06:54)
[2022-01-22] MEDS ORDERED: Dextrose 5%-0.45% NaCl 1,000 ML IV SCH (06:00)
[2022-01-22] MEDS ORDERED: Sodium Chloride 0.9% 10 ML Syringe FLUSH PRN (06:00)
[2022-01-22] MEDS ORDERED: Midazolam 1 MG/ML 2 ML SDV ONE (06:25)
[2022-01-22] MEDS ORDERED: fentaNYL 100 MCG/2 ML SDV ONE (06:26)
== END 2022-01-22 09:15 | disposition home or self-care (01) ==
LOC: DL.ENDO 05:31
PROVIDERS: ATTEND Internal Medicine Gastroenterology
DX: K57.30 Diverticulosis of large intestine without perforation or abscess without bleeding (principal); E66.09 Other obesity due to excess calories; E11.9 Type 2 diabetes mellitus without complications; D50.9 Iron deficiency anemia, unspecified; Z68.29 Body mass index [BMI] 29.0-29.9, adult; Z90.49 Acquired absence of other specified parts of digestive tract; Z98.890 Other specified postprocedural states; Z88.5 Allergy status to narcotic agent
CPT/HCPCS: 82947; J2250; J3010; J7042

== ENCOUNTER 2023-01-21 17:40 | Emergency (ER) | payer OTHER ==
[2023-01-21 18:50] LABS: ALBUMIN 3.8 g/dL (3.4-5.0); ANION GAP 11.8 mEq/L (7-13); BILIRUBIN TOTAL 0.3 mg/dL (0.2-1.0); BUN/CREATININE RATIO 25.4 (No establ ref range); CALCIUM 8.9 mg/dL (8.5-10.1); CREATININE 0.71 mg/dL (0.55-1.02); EST CRCL DRUG DOSING (CG) 59.98 mL/min; POTASSIUM,K 4.8 mmol/L (3.5-5.1); PROTEIN TOTAL,TP 7.7 g/dL (6.4-8.2)
[2023-01-21 18:59] LABS: BASOPHILS PERCENT AUTO 0.8 % (0.0-1.0); EOSINOPHILS PERCENT AUTO 2.4 % (1.0-3.0); HEMATOCRIT 34.6 % (37.0-47.0); HEMOGLOBIN 11.5 g/dL (12.0-16.0); LYMPHOCYTES PERCENT AUTO 33.8 % (20.5-50.1); MEAN CORPUSCULAR HEMOGLOBIN 30.1 pg (27.0-34.0); MEAN CORPUSCULAR HGB CONC 33.2 g/dL (33.0-35.0); MEAN CORPUSCULAR VOLUME 90.6 fL (80-100); MONOCYTES PERCENT AUTO 8.1 % (2-8); NEUTROPHILS PERCENT AUTO 54.9 % (42.2-75.2); PLATELET COUNT,PLT 253 10^3/uL (150-450); RED BLOOD CELL COUNT 3.82 10^6/uL (4.2-5.4); WHITE BLOOD CELL COUNT,WBC 7.4 10^3/uL (5.0-10.0)
[2023-01-21 19:38] LABS: APPEARANCE,URINE CLEAR (CLEAR); BILIRUBIN,URINE NEGATIVE (NEGATIVE); COLOR,URINE YELLOW (YELLOW); GLUCOSE,URINE NEGATIVE (NEGATIVE); KETONES,URINE NEGATIVE (NEGATIVE); LEUKOCYTE ESTERASE,URINE NEGATIVE (NEGATIVE); NITRITE,URINE NEGATIVE (NEGATIVE); OCCULT BLOOD,URINE NEGATIVE (NEGATIVE); PROTEIN,URINE NEGATIVE (NEGATIVE); UROBILINOGEN,URINE 0.2 mg/dL (0.2-1.0)
[2023-01-21 19:43] LABS: AMPHETAMINES,URINE NEGATIVE (NEGATIVE); BARBITURATES,URINE NEGATIVE (NEGATIVE); BENZODIAZEPINE,URINE NEGATIVE (NEGATIVE); MDMA (ECSTASY), URINE NEGATIVE (NEGATIVE); METHADONE,URINE NEGATIVE (NEGATIVE); METHAMPHETAMINES,URINE NEGATIVE (NEGATIVE); OPIATES,URINE NEGATIVE (NEGATIVE); OXYCODONE,URINE NEGATIVE (NEGATIVE); PHENCYCLIDINE,URINE NEGATIVE (NEGATIVE); TCA,URINE NEGATIVE (NEGATIVE)
[2023-01-21] MEDS ORDERED: Iopamidol 612 MG/ML 100 ML Bottle IVPUSH ONE (20:50)
== END 2023-01-21 21:58 | disposition home or self-care (01) ==
LOC: DL.ED 17:40
DX: K57.90 Diverticulosis of intestine, part unspecified, without perforation or abscess without bleeding (principal); R91.1 Solitary pulmonary nodule; K92.1 Melena; D63.8 Anemia in other chronic diseases classified elsewhere; Z79.82 Long term (current) use of aspirin; Z79.899 Other long term (current) drug therapy; Z79.84 Long term (current) use of oral hypoglycemic drugs; Z88.8 Allergy status to other drugs, medicaments and biological substances
CPT/HCPCS: 36415; 74177; 80053; 80305-QW; 81003; 82272; 83690; 85025; 99284; Q9967

== ENCOUNTER 2023-02-26 06:22 | Day surgery (SDC) | payer OTHER ==
[2023-02-26] MEDS ORDERED: Dextrose 5%-0.45% NaCl 1,000 ML IV SCH (07:00)
[2023-02-26] MEDS ORDERED: Midazolam 1 MG/ML 2 ML SDV IV ONE ×3 (07:32→07:36)
[2023-02-26] MEDS ORDERED: fentaNYL 100 MCG/2 ML SDV IV ONE ×3 (07:32→07:35)
[2023-02-26] MEDS ORDERED: fentaNYL 100 MCG/2 ML SDV ONE (07:32)
[2023-02-26] MEDS ORDERED: Midazolam 1 MG/ML 2 ML SDV ONE (07:32)
== END 2023-02-26 09:45 | disposition home or self-care (01) ==
LOC: DL.ENDO 06:22
PROVIDERS: ATTEND Internal Medicine Gastroenterology
DX: K29.50 Unspecified chronic gastritis without bleeding (principal); D64.9 Anemia, unspecified; E11.9 Type 2 diabetes mellitus without complications; J45.909 Unspecified asthma, uncomplicated
CPT/HCPCS: 87077; J2250; J3010; J7042

== ENCOUNTER 2023-03-04 07:44 | Day surgery (SDC) | payer OTHER ==
[~2023-03-04 07:44] MED LIST changes: +Dextrose 5%-0.45% NaCl 1,000 ML IV SCH; -Sodium Chloride 0.9% 10 ML Syringe FLUSH SCH
[2023-03-04] MEDS ORDERED: fentaNYL 100 MCG/2 ML SDV IV ONE ×3 (07:45→08:16)
[2023-03-04] MEDS ORDERED: Midazolam 1 MG/ML 2 ML SDV IV ONE ×7 (07:45→08:26)
[2023-03-04] MEDS ORDERED: Midazolam 1 MG/ML 2 ML SDV ONE (08:07)
[2023-03-04] MEDS ORDERED: fentaNYL 100 MCG/2 ML SDV ONE (08:07)
== END 2023-03-04 10:37 | disposition home or self-care (01) ==
LOC: DL.ENDO 07:44
PROVIDERS: ATTEND Internal Medicine Gastroenterology
DX: K57.30 Diverticulosis of large intestine without perforation or abscess without bleeding (principal); D50.9 Iron deficiency anemia, unspecified; E11.9 Type 2 diabetes mellitus without complications; Z79.84 Long term (current) use of oral hypoglycemic drugs; Z79.899 Other long term (current) drug therapy; Z88.5 Allergy status to narcotic agent
CPT/HCPCS: J2250; J3010; J7042